=== PATIENT | male | born 1990 | race Caucasian/White ===

== ENCOUNTER 2018-03-27 19:58 | Emergency (ER) | payer SELFPAY ==
[2018-03-27] MEDS ORDERED: ALBUTEROL 2.5 MG/3 ML NEB SOL ONE (20:30)
[2018-03-27] MEDS ORDERED: METHYLPREDNISOLONE 125 MG INJ ONE (20:30)
--- NOTE | 2018-03-27 21:13 | EDPHYS ---
Physician Documentation [facility] Name: Donell Rodriguez Age: 27 yrs Sex: Male : 1990 Arrival Date: 03/27/2018 Time: 19:59 Bed 16 Private MD: ED Physician Souleymane Gonzalez HPI: 03/27 20:27 This 27 yrs old Male presents to ER via Ambulatory with complaints of Asthma jr8 Exacerbation. 20:27 The patient presents to the emergency department with wheezing, Current therapy: jr8 albuterol inhaler, that began at rest. Onset: The symptoms/episode began/occurred acutely, today, and became worse and became persistent. Modifying factors: The symptoms are alleviated by nothing, the symptoms are aggravated by exertion, talking. Associated signs and symptoms: The patient has no apparent associated signs or symptoms. Severity of symptoms: At their worst the symptoms were moderate in the emergency department the symptoms are unchanged. The patient has experienced similar episodes in the past, a few times. The patient has not recently seen a physician. out of inhaler . Historical: - Allergies: 20:10 No Known Allergies; tl2 - Home Meds: 20:10 albuterol sulfate 90 mcg/actuation Inhl HFAA 2 puffs every 4 hours [Active]; tl2 - PMHx: 20:10 Anxiety; Asthma; tl2 - Immunization history:: Adult Immunizations up to date. - Social history:: Smoking status: Patient/guardian denies using tobacco. - Ebola Screening: : No symptoms or risks identified at this time. ROS: 20:27 Eyes: Negative for injury, pain, redness, and discharge, ENT: Negative for injury, jr8 pain, and discharge, Neck: Negative for injury, pain, and swelling, Cardiovascular: Negative for chest pain, palpitations, and edema, Abdomen/GI: Negative for abdominal pain, nausea, vomiting, diarrhea, and constipation, Back: Negative for injury and pain, MS/Extremity: Negative for injury and deformity, Skin: Negative for injury, rash, and discoloration, Neuro: Negative for headache, weakness, numbness, tingling, and seizure. 20:27 Respiratory: Positive for cough, dyspnea on exertion, shortness of breath, wheezing, expiratory. Exam: 20:27 Eyes: Pupils equal round and reactive to light, extra-ocular motions intact. Lids and jr8 lashes normal. Conjunctiva and sclera are non-icteric and not injected. Cornea within normal limits. Periorbital areas with no swelling, redness, or edema. ENT: Nares patent. No nasal discharge, no septal abnormalities noted. Tympanic membranes are normal and external auditory canals are clear. Oropharynx with no redness, swelling, or masses, exudates, or evidence of obstruction, uvula midline. Mucous membranes moist. Neck: Trachea midline, no thyromegaly or masses palpated, and no cervical lymphadenopathy. Supple, full range of motion without nuchal rigidity, or vertebral point tenderness. No Meningismus. Cardiovascular: Regular rate and rhythm with a normal S1 and S2. No gallops, murmurs, or rubs. Normal PMI, no JVD. No pulse deficits. Abdomen/GI: Soft, non-tender, with normal bowel sounds. No distension or tympany. No guarding or rebound. No evidence of tenderness throughout. Back: No spinal tenderness. No costovertebral tenderness. Full range of motion. Skin: Warm, dry with normal turgor. Normal color with no rashes, no lesions, and no evidence of cellulitis. MS/ Extremity: Pulses equal, no cyanosis. Neurovascular intact. Full, normal range of motion. Neuro: Awake and alert, GCS 15, oriented to person, place, time, and situation. Cranial nerves II-XII grossly intact. Motor strength 5/5 in all extremities. Sensory grossly intact. Cerebellar exam normal. Normal gait. 20:27 Respiratory: the patient does not display signs of respiratory distress, Respirations: normal, symetrical, no use of accessory muscles, no grunting, no evidence of nasal flaring, no appreciated paradoxical movements, no prolonged exhalations, no pursed lip breathing, no retractions, no shallow respirations, no splinting, no tachypnea, Breath sounds: wheezing: expiratory that is moderate, is heard diffusely. Vital Signs: 20:10 BP 139 / 83; Pulse 82; Resp 20; Temp 98.1(O); Pulse Ox 97% on R/A; Weight 65.77 kg; tl2 Height 5 ft. 5 in. (165.10 cm); Pain 2/10; 20:57 BP 123 / 95; Pulse 97; Resp 18; Pulse Ox 98% on R/A; mt 20:10 Body Mass Index 24.13 (65.77 kg, 165.10 cm) tl2 MDM: 20:15 Patient medically screened. jr8 21:12 Data reviewed: vital signs, nurses notes, and as a result, I will discharge patient. jr8 Data interpreted: Pulse oximetry: on room air is 96 %. Interpretation: normal. Counseling: I had a detailed discussion with the patient and/or guardian regarding: the historical points, exam findings, and any diagnostic results supporting the discharge/admit diagnosis, the need for outpatient follow up, a family practitioner, to return to the emergency department if symptoms worsen or persist or if there are any questions or concerns that arise at home. Response to treatment: the patient's symptoms have markedly improved after treatment. 03/27 20:23 Order name: IV; Complete Time: 20:33 jr8 Administered Medications: 20:35 Drug: SOLU-Medrol 125 mg Route: IVP; Site: left antecubital; aj1 21:43 Follow up: Response: No adverse reaction aj1 20:36 Drug: Albuterol 2.5 mg Route: Inhalation; aj1 20:55 Drug: Albuterol 2.5 mg Route: Inhalation; aj1 21:16 Drug: Albuterol 2.5 mg Route: Inhalation; aj1 21:43 Follow up: Response: No adverse reaction aj1 Disposition: 23:40 Co-signature as Attending Physician, Souleymane Gonzalez MD. rn Disposition: 03/27/18 21:12 Discharged to Home. Impression: Mild intermittent asthma with (acute) exacerbation. - Condition is Stable. - Discharge Instructions: Asthma, Adult. - Prescriptions for Prednisone 20 mg Oral Tablet - take 1 tablet by ORAL route once daily for 5 days; 5 tablet. Albuterol Sulfate 90 mcg/actuation - inhale 1-2 puff by INHALATION route every 4-6 hours; 1 Inhaler. - Medication Reconciliation Form, Thank You Letter, Antibiotic Education, Prescription Opioid Use form. - Follow up: Private Physician; When: 5 - 6 days; Reason: Recheck today's complaints, Continuance of care, Re-evaluation by your physician. - Problem is new. - Symptoms have improved. Signatures: Roselyn Rivas RN RN aj1 Souleymane Gonzalez MD MD rn Roszak, Josh, PA PA jr8 Juliet Paul RN RN tl2 Corrections: (The following items were deleted from the chart) 21:44 21:12 03/27/2018 21:12 Discharged to Home. Impression: Mild intermittent asthma with aj1 (acute) exacerbation. Condition is Stable. Forms are Medication Reconciliation Form, Thank You Letter, Antibiotic Education, Prescription Opioid Use. Follow up: Private Physician; When: 5 - 6 days; Reason: Recheck today's complaints, Continuance of care, Re-evaluation by your physician. Problem is new. Symptoms have improved. jr8
--- NOTE | 2018-03-27 21:13 | ER ---
Nurse's Notes [facility] Name: Donell Rodriguez Age: 27 yrs Sex: Male : 1990 Arrival Date: 03/27/2018 Time: 19:59 Bed 16 Private MD: Diagnosis: Mild intermittent asthma with (acute) exacerbation Presentation: 03/27 20:09 Presenting complaint: Patient states: I've been having an asthma attack since this tl2 morning. Does not have an inhaler. Reports congestion and wheezing. Transition of care: patient was not received from another setting of care. Onset of symptoms was March 27, 2018. Risk Assessment: Do you want to hurt yourself or someone else? Patient reports no desire to harm self or others. Initial Sepsis Screen: Does the patient meet any 2 criteria? No. Patient's initial sepsis screen is negative. Does the patient have a suspected source of infection? No. Patient's initial sepsis screen is negative. Care prior to arrival: None. 20:09 Method Of Arrival: Ambulatory tl2 20:09 Acuity: RICHARD 3 tl2 Triage Assessment: 20:10 General: Appears in no apparent distress. uncomfortable, Behavior is calm, cooperative, tl2 appropriate for age. Pain: Denies pain. Respiratory: Airway is patent Respiratory effort is even, unlabored, Respiratory pattern is regular, symmetrical, Breath sounds with wheezes bilaterally. the patient has mild shortness of breath. Historical: - Allergies: 20:10 No Known Allergies; tl2 - Home Meds: 20:10 albuterol sulfate 90 mcg/actuation Inhl HFAA 2 puffs every 4 hours [Active]; tl2 - PMHx: 20:10 Anxiety; Asthma; tl2 - Immunization history:: Adult Immunizations up to date. - Social history:: Smoking status: Patient/guardian denies using tobacco. - Ebola Screening: : No symptoms or risks identified at this time. Screenin:36 Abuse screen: Denies threats or abuse. Denies injuries from another. Nutritional aj1 screening: No deficits noted. Tuberculosis screening: No symptoms or risk factors identified. 21:43 Fall Risk None identified. aj1 Assessment: 20:36 General: Appears in no apparent distress. uncomfortable, Behavior is calm, cooperative, aj1 agitated. Pain: Denies pain. Neuro: Level of Consciousness is awake, alert, obeys commands, Oriented to person, place, time, situation, Speech is normal, Facial symmetry appears normal. Cardiovascular: Heart tones S1 S2 present Patient's skin is warm and dry. Respiratory: Reports shortness of breath at rest cough that is persistent Airway is patent Respiratory effort is even, labored, Respiratory pattern is tachypnea Breath sounds with wheezes bilaterally. GI: No signs and/or symptoms were reported involving the gastrointestinal system. : No signs and/or symptoms were reported regarding the genitourinary system. EENT: No signs and/or symptoms were reported regarding the EENT system. Derm: No signs and/or symptoms reported regarding the dermatologic system. Skin is pink, warm \T\ dry. normal. Musculoskeletal: No signs and/or symptoms reported regarding the musculoskeletal system. Circulation, motion, and sensation intact. 21:42 Reassessment: Patient appears in no apparent distress at this time. No changes from aj1 previously documented assessment. Patient and/or family updated on plan of care and expected duration. Pain level reassessed. Patient is alert, oriented x 3, equal unlabored respirations, skin warm/dry/pink. Vital Signs: 20:10 BP 139 / 83; Pulse 82; Resp 20; Temp 98.1(O); Pulse Ox 97% on R/A; Weight 65.77 kg; tl2 Height 5 ft. 5 in. (165.10 cm); Pain 2/10; 20:57 BP 123 / 95; Pulse 97; Resp 18; Pulse Ox 98% on R/A; mt 20:10 Body Mass Index 24.13 (65.77 kg, 165.10 cm) tl2 ED Course: 19:59 Patient arrived in ED. am2 20:10 Triage completed. tl2 20:10 Arm band placed on right wrist. tl2 20:13 Roselyn Rivas, KAREN is Primary Nurse. aj1 20:15 Leonard Barboza PA is PHCP. jr8 20:15 Souleymane Gonzalez MD is Attending Physician. jr8 20:33 Inserted saline lock: 20 gauge in left antecubital area, using aseptic technique. Blood mt collected. 20:36 Patient has correct armband on for positive identification. Bed in low position. Call aj1 light in reach. Side rails up X 1. 20:36 No provider procedures requiring assistance completed. aj1 21:42 IV discontinued, intact, bleeding controlled, No redness/swelling at site. Pressure aj1 dressing applied. Administered Medications: 20:35 Drug: SOLU-Medrol 125 mg Route: IVP; Site: left antecubital; aj1 21:43 Follow up: Response: No adverse reaction aj1 20:36 Drug: Albuterol 2.5 mg Route: Inhalation; aj1 20:55 Drug: Albuterol 2.5 mg Route: Inhalation; aj1 21:16 Drug: Albuterol 2.5 mg Route: Inhalation; aj1 21:43 Follow up: Response: No adverse reaction aj1 Outcome: 21:12 Discharge ordered by . jr8 21:44 Discharged to home ambulatory. aj1 21:44 Condition: good 21:44 Discharge instructions given to patient, Instructed on discharge instructions, follow up and referral plans. medication usage, Demonstrated understanding of instructions, follow-up care, medications, Prescriptions given X 1. 21:44 Patient left the ED. aj1 Signatures: Roselyn Rivas RN RN aj1 Leonard Barboza PA PA jr8 Juliet Paul RN RN tl2 Emely Loo [facility]
[2018-03-27 22:14] VITALS: TEMP 98.1
[2018-03-27 22:15] VITALS: BP 123/95; O2SAT 98
== END 2018-03-27 21:44 | disposition home or self-care (01) ==
LOC: ER 19:58
DX: J45.21 Mild intermittent asthma with (acute) exacerbation (principal)
CPT/HCPCS: 96374; 99284; J2930

== ENCOUNTER 2018-07-28 14:37 | Emergency (ER) | payer SELFPAY ==
[2018-07-28] MEDS ORDERED: METHYLPREDNISOLONE 125 MG INJ ONE (15:35)
[2018-07-28] MEDS ORDERED: IPRATROPIUM BROM 0.5MG/2.5ML ONE (15:35)
[2018-07-28] MEDS ORDERED: ALBUTEROL 2.5 MG/3 ML NEB SOL ONE (15:35)
[2018-07-28] MEDS ORDERED: Magnesium Sulfate 2gm IVPB 2 G/50 ML BAG IV ONE (15:35)
--- NOTE | 2018-07-28 16:42 | ER ---
Nurse's Notes [facility] Name: Donell Rodriguez Age: 28 yrs Sex: Male : 1990 Arrival Date: 07/28/2018 Time: 14:39 Bed 17 Private MD: Diagnosis: Asthma Presentation: 07/28 15:12 Presenting complaint: Patient states: Having shortness of breath, has hx of asthma but sg it hasnt been this bad in a long time, pt reports not having any medication at home because he hasnt needed it, audible wheezes noted. Transition of care: patient was not received from another setting of care. Onset of symptoms was July 28, 2018. Risk Assessment: Do you want to hurt yourself or someone else? Patient reports no desire to harm self or others. Initial Sepsis Screen:. Care prior to arrival: None. 15:12 Method Of Arrival: Ambulatory sg 15:12 Acuity: RICHARD 3 sg 15:56 Initial Sepsis Screen: Does the patient meet any 2 criteria? No. Patient's initial em sepsis screen is negative. Does the patient have a suspected source of infection? No. Patient's initial sepsis screen is negative. Historical: - Allergies: 15:13 No Known Allergies; sg - PMHx: 15:13 Anxiety; Asthma; sg - Immunization history:: Adult Immunizations not up to date. - Ebola Screening: : Patient negative for fever greater than or equal to 101.5 degrees Fahrenheit, and additional compatible Ebola Virus Disease symptoms Patient denies exposure to infectious person Patient denies travel to an Ebola-affected area in the 21 days before illness onset No symptoms or risks identified at this time. - Social history:: Smoking status: Patient/guardian denies using tobacco. Screenin:48 Abuse screen: Denies threats or abuse. Nutritional screening: No deficits noted. em Tuberculosis screening: No symptoms or risk factors identified. Fall Risk None identified. Assessment: 15:30 General: Appears in no apparent distress. comfortable, Behavior is calm, cooperative. em Pain: Denies pain. Neuro: Level of Consciousness is awake, alert, obeys commands, Oriented to person, place, time, situation. Cardiovascular: Denies chest pain, Capillary refill < 3 seconds Patient's skin is warm and dry. Respiratory: Reports cough that is productive, Airway is patent Respiratory effort is even, unlabored, Respiratory pattern is regular, symmetrical, Sputum is clear Breath sounds with wheezes bilaterally. Onset: The symptoms/episode began/occurred yesterday, the patient has mild shortness of breath. GI: Abdomen is flat. : No signs and/or symptoms were reported regarding the genitourinary system. Derm: Skin is intact, Skin is pink, warm \T\ dry. Musculoskeletal: Range of motion: intact in all extremities. Vital Signs: 15:13 BP 129 / 93; Pulse 96; Resp 18; Temp 97.7; Pulse Ox 94% on R/A; Pain 0/10; sg 16:34 BP 148 / 90; Pulse 85; Resp 16; Pulse Ox 100% on R/A; Pain 0/10; em ED Course: 14:39 Patient arrived in ED. mr 15:12 Familia Ray LVN is Primary Nurse. em 15:13 Triage completed. sg 15:16 Kassi Rodriguez FNP-C is [facility]. kb 15:16 Gadiel Ahuja MD is Attending Physician. kb 15:48 Patient has correct armband on for positive identification. Bed in low position. Call em light in reach. Side rails up X2. 15:48 No provider procedures requiring assistance completed. Inserted saline lock: 20 gauge em in right antecubital area, using aseptic technique. 15:56 Arm band placed on. em 16:54 IV discontinued, intact, bleeding controlled, No redness/swelling at site. Pressure em dressing applied. Administered Medications: 15:46 Drug: Magnesium Sulfate 2 grams Route: IVPB; Infused Over: 2 hrs; Site: right em antecubital; 16:54 Follow up: Response: No adverse reaction; IV Status: Completed infusion; IV Intake: 50mlem 15:46 Drug: SOLU-Medrol 125 mg Route: IVP; Site: right antecubital; iw 16:33 Follow up: Response: No adverse reaction em 15:46 Drug: DuoNeb (3:1) (2.5 mg - 0.5 mg) 3 ml Route: Nebulizer; em 16:34 Follow up: Response: No adverse reaction em Intake: 16:54 IV: 50ml; Total: 50ml. em Outcome: 16:41 Discharge ordered by . kb 16:54 Discharged to home ambulatory. em 16:54 Condition: good 16:54 Discharge instructions given to patient, Instructed on discharge instructions, follow up and referral plans. medication usage, Demonstrated understanding of instructions, follow-up care, medications, Prescriptions given X 2. 16:55 Patient left the ED. em Signatures: Kassi Rodriguez, MULTIMEDIA INSTRUCTIONAL DESIGNER-C MULTIMEDIA INSTRUCTIONAL DESIGNER-Lakhwinder Boyd, RN RN Reginald Syeda mr RayFamilia, BIOMEDICAL SCIENTIST BIOMEDICAL SCIENTIST Rachell Sampson RN RN iw
--- NOTE | 2018-07-28 16:42 | EDPHYS ---
Physician Documentation [facility] Name: Donell Rodriguez Age: 28 yrs Sex: Male : 1990 Arrival Date: 07/28/2018 Time: 14:39 Bed 17 Private MD: ED Physician Gadiel Ahuja HPI: 07/28 15:43 This 28 yrs old Male presents to ER via Ambulatory with complaints of Asthma kb Exacerbation. 15:43 The patient presents to the emergency department with wheezing, Current therapy: None, kb that began allergies or cold, the patient was reported to have audible wheezing, trouble breathing. Onset: The symptoms/episode began/occurred last night. Modifying factors: The symptoms are alleviated by nothing, the symptoms are aggravated by nothing. Associated signs and symptoms: The patient has no apparent associated signs or symptoms. Severity of symptoms: At their worst the symptoms were moderate in the emergency department the symptoms are unchanged. The patient has experienced similar episodes in the past, chronically. The patient has not recently seen a physician. Pt reports he has had a cough for about a week, last night started having wheezing and shortness of breath. Historical: - Allergies: 15:13 No Known Allergies; sg - PMHx: 15:13 Anxiety; Asthma; sg - Immunization history:: Adult Immunizations not up to date. - Ebola Screening: : Patient negative for fever greater than or equal to 101.5 degrees Fahrenheit, and additional compatible Ebola Virus Disease symptoms Patient denies exposure to infectious person Patient denies travel to an Ebola-affected area in the 21 days before illness onset No symptoms or risks identified at this time. - Social history:: Smoking status: Patient/guardian denies using tobacco. ROS: 15:41 Constitutional: Negative for fever, chills, and weight loss, Cardiovascular: Negative kb for chest pain, palpitations, and edema, Abdomen/GI: Negative for abdominal pain, nausea, vomiting, diarrhea, and constipation, MS/Extremity: Negative for injury and deformity, Skin: Negative for injury, rash, and discoloration, Neuro: Negative for headache, weakness, numbness, tingling, and seizure. 15:41 Respiratory: Positive for cough, shortness of breath, wheezing, Negative for dyspnea on exertion, hemoptysis, orthopnea, pleurisy. Exam: 15:43 Constitutional: This is a well developed, well nourished patient who is awake, alert, kb and in no acute distress. Head/Face: Normocephalic, atraumatic. Chest/axilla: Normal chest wall appearance and motion. Nontender with no deformity. No lesions are appreciated. Cardiovascular: Regular rate and rhythm with a normal S1 and S2. No gallops, murmurs, or rubs. Normal PMI, no JVD. No pulse deficits. Abdomen/GI: Soft, non-tender, with normal bowel sounds. No distension or tympany. No guarding or rebound. No evidence of tenderness throughout. Back: No spinal tenderness. No costovertebral tenderness. Full range of motion. Skin: Warm, dry with normal turgor. Normal color with no rashes, no lesions, and no evidence of cellulitis. MS/ Extremity: Pulses equal, no cyanosis. Neurovascular intact. Full, normal range of motion. Neuro: Awake and alert, GCS 15, oriented to person, place, time, and situation. Cranial nerves II-XII grossly intact. Motor strength 5/5 in all extremities. Sensory grossly intact. Cerebellar exam normal. Normal gait. 15:43 Respiratory: mild respiratory distress is noted, Respirations: labored breathing, that is mild, that is moderate, Breath sounds: wheezing: inspiratory expiratory that is severe, is heard diffusely. Vital Signs: 15:13 BP 129 / 93; Pulse 96; Resp 18; Temp 97.7; Pulse Ox 94% on R/A; Pain 0/10; sg 16:34 BP 148 / 90; Pulse 85; Resp 16; Pulse Ox 100% on R/A; Pain 0/10; em MDM: 15:17 Patient medically screened. kb 15:42 Data reviewed: vital signs, nurses notes. Data interpreted: Pulse oximetry: on room air kb is 94 %. Interpretation: acceptable. 16:37 Response to treatment: the patient's symptoms have markedly improved after treatment. kb 16:41 Counseling: I had a detailed discussion with the patient and/or guardian regarding: the kb historical points, exam findings, and any diagnostic results supporting the discharge/admit diagnosis, the need for outpatient follow up, a family practitioner, to return to the emergency department if symptoms worsen or persist or if there are any questions or concerns that arise at home. 07/28 15:21 Order name: IV Start; Complete Time: 15:46 kb Administered Medications: 15:46 Drug: Magnesium Sulfate 2 grams Route: IVPB; Infused Over: 2 hrs; Site: right em antecubital; 16:54 Follow up: Response: No adverse reaction; IV Status: Completed infusion; IV Intake: 50mlem 15:46 Drug: SOLU-Medrol 125 mg Route: IVP; Site: right antecubital; iw 16:33 Follow up: Response: No adverse reaction em 15:46 Drug: DuoNeb (3:1) (2.5 mg - 0.5 mg) 3 ml Route: Nebulizer; em 16:34 Follow up: Response: No adverse reaction em Disposition: 18:36 Co-signature as Attending Physician, Gadiel Ahuja MD. Disposition: 07/28/18 16:41 Discharged to Home. Impression: Asthma. - Condition is Stable. - Discharge Instructions: Asthma, Adult, [id number]. - Prescriptions for Prednisone 20 mg Oral Tablet - take 1 tablet by ORAL route once daily for 5 days; 5 tablet. Albuterol Sulfate 2.5 mg /3 mL (0.083 %) Inhalation Solution for Nebulization - inhale 1 unit by NEBULIZATION route every 8 hours As needed; 1 box. Albuterol Sulfate 90 mcg/actuation - inhale 1-2 puff by INHALATION route every 4-6 hours; 1 Inhaler. - Medication Reconciliation Form, Thank You Letter, Antibiotic Education, Prescription Opioid Use form. - Follow up: Emergency Department; When: As needed; Reason: Worsening of condition. Follow up: Private Physician; When: 2 - 3 days; Reason: Recheck today's complaints, Continuance of care, Re-evaluation by your physician. Signatures: Kassi Rodriguez, CONSULTING GROUP ANALYST-C CONSULTING GROUP ANALYST-Ckb Lakhwinder Redman, KAREN RN sg Familia Ray, KELP OR SEAGRASS GATHERER KELP OR SEAGRASS GATHERER em Rachell Finn RN RN Gadiel Ahuja MD MD Corrections: (The following items were deleted from the chart) 16:55 16:41 07/28/2018 16:41 Discharged to Home. Impression: Asthma. Condition is Stable. em Forms are Medication Reconciliation Form, Thank You Letter, Antibiotic Education, Prescription Opioid Use. Follow up: Emergency Department; When: As needed; Reason: Worsening of condition. Follow up: Private Physician; When: 2 - 3 days; Reason: Recheck today's complaints, Continuance of care, Re-evaluation by your physician. kb
[2018-07-28 17:01] VITALS: TEMP 97.7
[2018-07-28 17:03] VITALS: BP 148/90; O2SAT 100
== END 2018-07-28 16:55 | disposition home or self-care (01) ==
LOC: ER 14:37
DX: J45.909 Unspecified asthma, uncomplicated (principal)
CPT/HCPCS: 94640; 96365; 96375; 99284; J2930; J3475

== ENCOUNTER 2019-01-25 22:54 | Emergency (ER) | payer SELFPAY ==
[2019-01-25] MEDS ORDERED: IPRATROPIUM BROM 0.5MG/2.5ML ONE (23:18)
[2019-01-25] MEDS ORDERED: ALBUTEROL 2.5 MG/3 ML NEB SOL ONE (23:18)
[2019-01-25] MEDS ORDERED: METHYLPREDNISOLONE 125 MG INJ ONE (23:21)
--- NOTE | 2019-01-26 00:17 | ER ---
Nurse's Notes [facility] Name: Donell Rodriguez Age: 28 yrs Sex: Male : 1990 Arrival Date: 01/25/2019 Time: 22:56 Bed 6 Private MD: Diagnosis: Acute exacerbation asthma Presentation: 01/25 22:58 Presenting complaint: Patient states: Asthma exacerbation that started today, pt la1 reports having a panic attack about 20 minutes ago. Pt repeats that he is out of his albuterol nebulizer as well. Transition of care: patient was not received from another setting of care. Onset of symptoms was January 25, 2019. Risk Assessment: Do you want to hurt yourself or someone else? Patient reports no desire to harm self or others. Initial Sepsis Screen: Does the patient meet any 2 criteria? No. Patient's initial sepsis screen is negative. Does the patient have a suspected source of infection? No. Patient's initial sepsis screen is negative. Care prior to arrival: None. 22:58 Method Of Arrival: Ambulatory la1 22:58 Acuity: RICHARD 3 la1 Triage Assessment: 23:10 General: see triage assessment. Respiratory: the patient has moderate shortness of tl2 breath. Respiratory: Onset: The symptoms/episode began/occurred just prior to arrival. Historical: - Allergies: 23:00 No Known Allergies; la1 - Home Meds: 23:16 albuterol sulfate 90 mcg/actuation Inhl HFAA 2 puffs every 4 hours [Active]; tl2 - PMHx: 23:00 Anxiety; Asthma; la1 - Immunization history:: Adult Immunizations up to date. - Social history:: Smoking status: Patient/guardian denies using tobacco. - Ebola Screening: : No symptoms or risks identified at this time. Screenin:09 Abuse screen: Denies threats or abuse. Nutritional screening: No deficits noted. tl2 Tuberculosis screening: No symptoms or risk factors identified. Fall Risk None identified. Assessment: 23:09 General: Appears in no apparent distress. uncomfortable, Behavior is cooperative, tl2 appropriate for age, anxious. Pain: Denies pain. Neuro: Level of Consciousness is awake, alert, obeys commands, Oriented to person, place, time, situation. Cardiovascular: Rhythm is sinus rhythm. Respiratory: Airway is patent Respiratory effort is even, labored, Respiratory pattern is regular, symmetrical, Breath sounds with wheezes bilaterally. Respiratory: Reports shortness of breath labored breathing. GI: No signs and/or symptoms were reported involving the gastrointestinal system. : No signs and/or symptoms were reported regarding the genitourinary system. Derm: Skin is pink, warm \T\ dry. 23:37 Reassessment: Patient appears in no apparent distress at this time. Patient and/or tl2 family updated on plan of care and expected duration. Pain level reassessed. Patient is alert, oriented x 3, equal unlabored respirations, skin warm/dry/pink. Patient states feeling better. Patient states symptoms have improved. 01/26 00:27 Reassessment: Patient appears in no apparent distress at this time. Patient and/or tl2 family updated on plan of care and expected duration. Pain level reassessed. Patient is alert, oriented x 3, equal unlabored respirations, skin warm/dry/pink. pt verbalized understanding of discharge instructions, need for follow up, prescription usage and list of Family doctors in the area Patient states feeling better. Vital Signs: 01/25 23:00 BP 137 / 98; Pulse 89; Resp 24; Temp 98.0(O); Pulse Ox 100% on R/A; Weight 63.5 kg; la1 Height 5 ft. 5 in. (165.10 cm); Pain 0/10; 23:37 BP 126 / 73; Pulse 88; Resp 12; Pulse Ox 100% on Nebulizer Mask; tl2 01/26 00:27 BP 132 / 82; Pulse 89; Resp 18; Pulse Ox 97% on R/A; tl2 01/25 23:00 Body Mass Index 23.30 (63.50 kg, 165.10 cm) la1 ED Course: 01/25 22:56 Patient arrived in ED. am2 22:59 Triage completed. la1 23:00 Arm band placed on right wrist. la1 23:04 Joni See MD is Attending Physician. pkl 23:06 Rhiannon Corey, KAREN is Primary Nurse. ea 23:09 Patient has correct armband on for positive identification. Placed in gown. Bed in low tl2 position. Call light in reach. Side rails up X 1. 01/26 00:27 No provider procedures requiring assistance completed. Patient did not have IV access tl2 during this emergency room visit. Administered Medications: 01/25 23:10 Drug: Albuterol - atroVENT (3:1) (2.5 mg - 0.5 mg) 3 ml Route: Nebulizer; tl2 23:39 Follow up: Response: No adverse reaction; Wheezing diminished ea 23:14 Drug: SOLU-Medrol 125 mg Route: IM; Site: right deltoid; tl2 23:39 Follow up: Response: No adverse reaction ea Outcome: 01/26 00:16 Discharge ordered by . felicitas 00:27 Discharged to home ambulatory. tl2 00:27 Condition: stable 00:27 Discharge instructions given to patient, Instructed on discharge instructions, follow up and referral plans. medication usage, Demonstrated understanding of instructions, follow-up care, medications, Prescriptions given X 2. 00:29 Patient left the ED. tl2 Signatures: Joni See MD MD pkl Attema, Lee RN RN kaia1 Juliet Paul RN RN tl2 Emely Loo Elena, RN RN ea
--- NOTE | 2019-01-26 00:17 | EDPHYS ---
Physician Documentation [facility] Name: Donell Rodriguez Age: 28 yrs Sex: Male : 1990 Arrival Date: 01/25/2019 Time: 22:56 Bed 6 Private MD: ED Physician Joni See HPI: 01/25 23:12 This 28 yrs old Male presents to ER via Ambulatory with complaints of Asthma pkl Exacerbation, Breathing Difficulty. 23:12 Onset: The symptoms/episode began/occurred today. Associated signs and symptoms: pkl Pertinent positives: panic attack. Historical: - Allergies: 23:00 No Known Allergies; la1 - Home Meds: 23:16 albuterol sulfate 90 mcg/actuation Inhl HFAA 2 puffs every 4 hours [Active]; tl2 - PMHx: 23:00 Anxiety; Asthma; la1 - Immunization history:: Adult Immunizations up to date. - Social history:: Smoking status: Patient/guardian denies using tobacco. - Ebola Screening: : No symptoms or risks identified at this time. ROS: 23:12 Eyes: Negative for injury, pain, redness, and discharge, ENT: Negative for injury, pkl pain, and discharge, Neck: Negative for injury, pain, and swelling, Cardiovascular: Negative for chest pain, palpitations, and edema. 23:12 Respiratory: Positive for shortness of breath, wheezing. 23:12 Abdomen/GI: Negative for abdominal pain, nausea, vomiting, and diarrhea. 23:12 Back: Negative for acute changes. 23:12 : Negative for urinary symptoms. 23:12 MS/extremity: Negative for acute changes. 23:12 Skin: Negative for rash. 23:12 Neuro: Negative for altered mental status. Exam: 23:12 Head/Face: Normocephalic, atraumatic. Eyes: Pupils equal round and reactive to light, pkl extra-ocular motions intact. Lids and lashes normal. Conjunctiva and sclera are non-icteric and not injected. Cornea within normal limits. Periorbital areas with no swelling, redness, or edema. ENT: Nares patent. No nasal discharge, no septal abnormalities noted. Tympanic membranes are normal and external auditory canals are clear. Oropharynx with no redness, swelling, or masses, exudates, or evidence of obstruction, uvula midline. Mucous membranes moist. Neck: Trachea midline, no thyromegaly or masses palpated, and no cervical lymphadenopathy. Supple, full range of motion without nuchal rigidity, or vertebral point tenderness. No Meningismus. Chest/axilla: Normal chest wall appearance and motion. Nontender with no deformity. No lesions are appreciated. Cardiovascular: Regular rate and rhythm with a normal S1 and S2. No gallops, murmurs, or rubs. Normal PMI, no JVD. No pulse deficits. 23:12 Respiratory: mild respiratory distress is noted, Respirations: labored breathing, Breath sounds: bronchial sounds, that are moderate, are scattered. 23:12 Abdomen/GI: Bowel sounds: normal, Palpation: abdomen is soft and non-tender, in all quadrants. 23:12 Back: Exam negative for acute changes. 23:12 : Exam negative for acute changes. 23:12 Musculoskeletal/extremity: Exam is negative for acute changes. 23:12 Skin: Exam negative for rash. 23:12 Neuro: Orientation: is normal, Mentation: is normal, Cranial nerves: grossly normal, Motor: is normal. 23:12 Psych: Behavior/mood is anxious, Patient has no thoughts/intents to harm self or others. Vital Signs: 23:00 BP 137 / 98; Pulse 89; Resp 24; Temp 98.0(O); Pulse Ox 100% on R/A; Weight 63.5 kg; la1 Height 5 ft. 5 in. (165.10 cm); Pain 0/10; 23:37 BP 126 / 73; Pulse 88; Resp 12; Pulse Ox 100% on Nebulizer Mask; tl2 01/26 00:27 BP 132 / 82; Pulse 89; Resp 18; Pulse Ox 97% on R/A; tl2 01/25 23:00 Body Mass Index 23.30 (63.50 kg, 165.10 cm) la1 MDM: 01/25 23:04 Patient medically screened. pkl 01/26 00:15 Data reviewed: vital signs, nurses notes. pkl Administered Medications: 01/25 23:10 Drug: Albuterol - atroVENT (3:1) (2.5 mg - 0.5 mg) 3 ml Route: Nebulizer; tl2 23:39 Follow up: Response: No adverse reaction; Wheezing diminished ea 23:14 Drug: SOLU-Medrol 125 mg Route: IM; Site: right deltoid; tl2 23:39 Follow up: Response: No adverse reaction ea Disposition: 01/26/19 00:16 Discharged to Home. Impression: Acute exacerbation asthma. - Condition is Stable. - Prescriptions for Albuterol Sulfate 90 mcg/actuation - inhale 1-2 puff by INHALATION route every 4-6 hours; 1 Inhaler. Albuterol Sulfate 2.5 mg /3 mL (0.083 %) Inhalation Solution for Nebulization - inhale 1 unit by NEBULIZATION route every 8 hours As needed; 1 box. - Medication Reconciliation Form, Thank You Letter, Antibiotic Education, Prescription Opioid Use form. - Follow up: Private Physician; When: 2 - 3 days; Reason: Re-evaluation by your physician. - Problem is new. - Symptoms have improved. Signatures: Joni See MD MD pkl Edilberto Albarran RN RN la1 Juliet Paul RN RN tl2 Rhiannon Corey RN, ea Corrections: (The following items were deleted from the chart) 01/26 00:29 00:16 01/26/2019 00:16 Discharged to Home. Impression: Acute exacerbation asthma. tl2 Condition is Stable. Forms are Medication Reconciliation Form, Thank You Letter, Antibiotic Education, Prescription Opioid Use. Follow up: Private Physician; When: 2 - 3 days; Reason: Re-evaluation by your physician. Problem is new. Symptoms have improved. pkl
[2019-01-26 01:44] VITALS: TEMP 98
[2019-01-26 02:39] VITALS: BP 132/82; O2SAT 97
== END 2019-01-26 00:29 | disposition home or self-care (01) ==
LOC: ER 22:54
DX: J45.901 Unspecified asthma with (acute) exacerbation (principal); F41.9 Anxiety disorder, unspecified
CPT/HCPCS: 94640; 96372; 99284; J2930

== ENCOUNTER 2019-05-24 09:00 | Emergency (ER) | payer SELFPAY ==
--- NOTE | 2019-05-24 09:42 | ER ---
Nurse's Notes [facility] Name: Donell Rodriguez Age: 29 yrs Sex: Male : 1990 Arrival Date: 05/24/2019 Time: 09:02 Bed 19 Private MD: Diagnosis: Asthma;Acute upper respiratory infection, unspecified Presentation: 05/24 09:10 Presenting complaint: Patient states: difficulty breathing since last night, chest aa5 congestion, and chest pain. Pt denies cough. Pt states "I have asthma and I ran out of my inhaler". 09:10 Transition of care: patient was not received from another setting of care. Onset of aa5 symptoms was April 2019. Risk Assessment: Do you want to hurt yourself or someone else? Patient reports no desire to harm self or others. Initial Sepsis Screen: Does the patient meet any 2 criteria? No. Patient's initial sepsis screen is negative. Does the patient have a suspected source of infection? No. Patient's initial sepsis screen is negative. Care prior to arrival: None. 09:10 Acuity: RICHARD 3 aa5 09:10 Method Of Arrival: Ambulatory aa5 Historical: - Allergies: 09:10 No Known Allergies; aa5 - Home Meds: 09:10 albuterol sulfate 90 mcg/actuation Inhl HFAA 2 puffs every 4 hours [Active]; aa5 - PMHx: 09:10 Anxiety; Asthma; aa5 - PSHx: 09:10 None; aa5 - Immunization history:: Flu vaccine is not up to date. - Social history:: Smoking status: Patient/guardian denies using tobacco. - Ebola Screening: : No symptoms or risks identified at this time. - Family history:: not pertinent. Screenin:16 Abuse screen: Denies threats or abuse. Nutritional screening: No deficits noted. aa5 Tuberculosis screening: No symptoms or risk factors identified. Fall Risk None identified. Assessment: 09:10 General: Appears uncomfortable, Behavior is calm, cooperative. Pain: Complains of pain aa5 in mid-sternal area Pain does not radiate. Pain currently is 3 out of 10 on a pain scale. Quality of pain is described as pressure, Pain began last night Is continuous. Neuro: Level of Consciousness is awake, alert, obeys commands, Oriented to person, place, time, situation. Cardiovascular: Heart tones S1 S2 present Rhythm is regular. Respiratory: Reports shortness of breath Airway is patent Respiratory effort is even, unlabored, Respiratory pattern is regular, symmetrical, Breath sounds with wheezes bilaterally. Denies cough. GI: No signs and/or symptoms were reported involving the gastrointestinal system. : No signs and/or symptoms were reported regarding the genitourinary system. EENT: No signs and/or symptoms were reported regarding the EENT system. Derm: Skin is pink, warm \\T\\ dry. Musculoskeletal: Range of motion: intact in all extremities. 10:07 Reassessment: Patient appears in no apparent distress at this time. Patient and/or em family updated on plan of care and expected duration. Pain level reassessed. Patient is alert, oriented x 3, equal unlabored respirations, skin warm/dry/pink. wheeled to radiology dept. via wheelchair, pending completion of X-ray, pt will be discharged after results Patient states feeling better. Patient states symptoms have improved. Vital Signs: 09:10 BP 125 / 81; Pulse 92; Resp 18 S; Temp 98.1(TE); Pulse Ox 100% on R/A; Weight 58.97 kg aa5 (R); Height 5 ft. 5 in. (165.10 cm) (R); Pain 3/10; 09:10 Body Mass Index 21.63 (58.97 kg, 165.10 cm) aa5 ED Course: 09:02 Patient arrived in ED. as 09:12 Arm band placed on Patient placed in an exam room, on a stretcher. aa5 09:12 Patient has correct armband on for positive identification. Bed in low position. Call aa5 light in reach. Side rails up X 1. 09:13 Triage completed. aa5 09:15 Nain Loaiza MD is Attending Physician. [facility] 09:31 Familia Ray LVN is Primary Nurse. em 10:19 Chest Pa And Lat (2 Views) XRAY In Process Unspecified. EDMS 10:42 No provider procedures requiring assistance completed. Patient did not have IV access em during this emergency room visit. Administered Medications: 09:50 Drug: Zithromax 500 mg Route: PO; em 10:08 Follow up: Response: No adverse reaction em 09:50 Drug: Albuterol - atroVENT (3:1) (2.5 mg - 0.5 mg) 3 ml Route: Nebulizer; em 10:08 Follow up: Response: No adverse reaction; Marked relief of symptoms em 09:50 Drug: predniSONE 60 mg Route: PO; em 10: Follow up: Response: No adverse reaction em Outcome: :41 Discharge ordered by . denisha 10:42 Discharged to home ambulatory. em 10:42 Condition: good 10:42 Discharge instructions given to patient, Instructed on discharge instructions, follow up and referral plans. medication usage, Demonstrated understanding of instructions, follow-up care, medications, Prescriptions given X 4. 10:43 Patient left the ED. em Signatures: Dispatcher [employer] EDNain Alas MD MD cha Munoz, Edgar, TSA SCREENER TSA SCREENER Sydni Mosquera Audri, RN RN aa5 Corrections: (The following items were deleted from the chart) 09:14 09:02 Arm band placed on Patient placed in an exam room, on a stretcher, aa5 aa5 10:14 10:07 Reassessment: Patient appears in no apparent distress at this time. Patient em and/or family updated on plan of care and expected duration. Pain level reassessed. Patient is alert, oriented x 3, equal unlabored respirations, skin warm/dry/pink. wheeled to radiology dept. via wheelchair Patient states feeling better. Patient states symptoms have improved. em
--- NOTE | 2019-05-24 09:43 | EDPHYS ---
Physician Documentation [facility] Name: Donell Rodriguez Age: 29 yrs Sex: Male : 1990 Arrival Date: 05/24/2019 Time: 09:02 Bed 19 Private MD: RODNEY Physician Nain Loaiza HPI: 05/24 09:35 This 29 yrs old Male presents to ER via Ambulatory with complaints of Asthma denisha Exacerbation. 09:35 The patient presents to the emergency department with wheezing, Current therapy: None. denisha Onset: The symptoms/episode began/occurred 2 day(s) ago. Modifying factors: The symptoms are alleviated by inhaler, nebulizer treatment, the symptoms are aggravated by dust, exertion, heat, smoke. Associated signs and symptoms: The patient has no apparent associated signs or symptoms. Severity of symptoms: At their worst the symptoms were moderate in the emergency department the symptoms are unchanged. The patient has experienced similar episodes in the past, multiple times. Historical: - Allergies: 09:10 No Known Allergies; aa5 - Home Meds: 09:10 albuterol sulfate 90 mcg/actuation Inhl HFAA 2 puffs every 4 hours [Active]; aa5 - PMHx: 09:10 Anxiety; Asthma; aa5 - PSHx: 09:10 None; aa5 - Immunization history:: Flu vaccine is not up to date. - Social history:: Smoking status: Patient/guardian denies using tobacco. - Ebola Screening: : No symptoms or risks identified at this time. - Family history:: not pertinent. ROS: 09:35 Constitutional: Negative for fever, chills, and weight loss, Eyes: Negative for injury, denisha pain, redness, and discharge, ENT: Negative for injury, pain, and discharge, Neck: Negative for injury, pain, and swelling, Cardiovascular: Negative for chest pain, palpitations, and edema, Abdomen/GI: Negative for abdominal pain, nausea, vomiting, diarrhea, and constipation, Back: Negative for injury and pain, : Negative for injury, bleeding, discharge, and swelling, MS/Extremity: Negative for injury and deformity, Skin: Negative for injury, rash, and discoloration, Neuro: Negative for headache, weakness, numbness, tingling, and seizure, Psych: Negative for depression, anxiety, suicide ideation, homicidal ideation, and hallucinations, Allergy/Immunology: Negative for hives, rash, and allergies, Endocrine: Negative for neck swelling, polydipsia, polyuria, polyphagia, and marked weight changes, Hematologic/Lymphatic: Negative for swollen nodes, abnormal bleeding, and unusual bruising. 09:35 Respiratory: Positive for cough, shortness of breath, wheezing, inspiratory, expiratory. Exam: 09:35 Constitutional: This is a well developed, well nourished patient who is awake, alert, denisha and in no acute distress. Head/Face: Normocephalic, atraumatic. Eyes: Pupils equal round and reactive to light, extra-ocular motions intact. Lids and lashes normal. Conjunctiva and sclera are non-icteric and not injected. Cornea within normal limits. Periorbital areas with no swelling, redness, or edema. ENT: Nares patent. No nasal discharge, no septal abnormalities noted. Tympanic membranes are normal and external auditory canals are clear. Oropharynx with no redness, swelling, or masses, exudates, or evidence of obstruction, uvula midline. Mucous membranes moist. Neck: Trachea midline, no thyromegaly or masses palpated, and no cervical lymphadenopathy. Supple, full range of motion without nuchal rigidity, or vertebral point tenderness. No Meningismus. Chest/axilla: Normal chest wall appearance and motion. Nontender with no deformity. No lesions are appreciated. Cardiovascular: Regular rate and rhythm with a normal S1 and S2. No gallops, murmurs, or rubs. Normal PMI, no JVD. No pulse deficits. Abdomen/GI: Soft, non-tender, with normal bowel sounds. No distension or tympany. No guarding or rebound. No evidence of tenderness throughout. Back: No spinal tenderness. No costovertebral tenderness. Full range of motion. Male : Normal genitalia with no discharge or lesions. Skin: Warm, dry with normal turgor. Normal color with no rashes, no lesions, and no evidence of cellulitis. MS/ Extremity: Pulses equal, no cyanosis. Neurovascular intact. Full, normal range of motion. Neuro: Awake and alert, GCS 15, oriented to person, place, time, and situation. Cranial nerves II-XII grossly intact. Motor strength 5/5 in all extremities. Sensory grossly intact. Cerebellar exam normal. Normal gait. Psych: Awake, alert, with orientation to person, place and time. Behavior, mood, and affect are within normal limits. 09:35 Respiratory: mild respiratory distress is noted, Respirations: labored breathing, that is mild, Breath sounds: bronchial sounds, rhonchi, wheezing: inspiratory expiratory Respiratory rate: 20 Vital Signs: 09:10 BP 125 / 81; Pulse 92; Resp 18 S; Temp 98.1(TE); Pulse Ox 100% on R/A; Weight 58.97 kg aa5 (R); Height 5 ft. 5 in. (165.10 cm) (R); Pain 3/10; 09:10 Body Mass Index 21.63 (58.97 kg, 165.10 cm) aa5 MDM: 09:15 Patient medically screened. [facility] 09:36 Data reviewed: vital signs, nurses notes, radiologic studies, plain films. [facility] 05/24 09:34 Order name: Chest Pa And Lat (2 Views) XRAY denisha Administered Medications: 09:50 Drug: Zithromax 500 mg Route: PO; em 10:08 Follow up: Response: No adverse reaction em 09:50 Drug: Albuterol - atroVENT (3:1) (2.5 mg - 0.5 mg) 3 ml Route: Nebulizer; em 10:08 Follow up: Response: No adverse reaction; Marked relief of symptoms em 09:50 Drug: predniSONE 60 mg Route: PO; em 10:08 Follow up: Response: No adverse reaction em Disposition: 05/24/19 09:41 Discharged to Home. Impression: Asthma, Acute upper respiratory infection, unspecified. - Condition is Stable. - Discharge Instructions: Asthma, Adult, Upper Respiratory Infection, Adult, Cool Mist Vaporizer, Cough, Adult, [id number], Cough, Adult. - Prescriptions for Albuterol Sulfate 2.5 mg /3 mL (0.083 %) Inhalation Solution for Nebulization - inhale 1 unit by NEBULIZATION route every 8 hours As needed; 1 box. Prednisone 20 mg Oral Tablet - take 2 tablet by ORAL route once daily for 5 days; 10 tablet. Albuterol Sulfate 90 mcg/actuation - inhale 1-2 puff by INHALATION route every 4-6 hours; 1 Inhaler. Zithromax 500 mg Oral Tablet - take 1 tablet by ORAL route once daily for 4 days; 4 tablet. - Medication Reconciliation Form, Thank You Letter, Antibiotic Education, Prescription Opioid Use, Work release form form. - Follow up: Private Physician; When: 2 - 3 days; Reason: Recheck today's complaints, Continuance of care, Re-evaluation by your physician. - Problem is new. - Symptoms have improved. Signatures: Dispatcher [employer] EDNain Alas MD MD cha Munoz, Familia, LIEUTENANT SHIFT SUPERVISOR LIEUTENANT SHIFT SUPERVISOR Michelle Villanueva, RN RN aa5 Corrections: (The following items were deleted from the chart) 10:43 09:41 05/24/2019 09:41 Discharged to Home. Impression: Asthma; Acute upper respiratory em infection, unspecified. Condition is Stable. Discharge Instructions: Asthma, Adult, Upper Respiratory Infection, Adult, Cool Mist Vaporizer, Cough, Adult, [id number], Cough, Adult. Prescriptions for Albuterol Sulfate 2.5 mg /3 mL (0.083 %) Inhalation Solution for Nebulization - inhale 1 unit by NEBULIZATION route every 8 hours As needed; 1 box, Prednisone 20 mg Oral Tablet - take 2 tablet by ORAL route once daily for 5 days; 10 tablet, Albuterol Sulfate 90 mcg/actuation - inhale 1-2 puff by INHALATION route every 4-6 hours; 1 Inhaler, Zithromax 500 mg Oral Tablet - take 1 tablet by ORAL route once daily for 4 days; 4 tablet. and Forms are Medication Reconciliation Form, Thank You Letter, Antibiotic Education, Prescription Opioid Use. Follow up: Private Physician; When: 2 - 3 days; Reason: Recheck today's complaints, Continuance of care, Re-evaluation by your physician. Problem is new. Symptoms have improved. denisha
[2019-05-24] MEDS ORDERED: AZITHROMYCIN 250 MG TAB ONE (09:53)
[2019-05-24] MEDS ORDERED: ALBUTEROL 2.5 MG/3 ML NEB SOL ONE (09:53)
[2019-05-24] MEDS ORDERED: IPRATROPIUM BROM 0.5MG/2.5ML ONE (09:53)
[2019-05-24] MEDS ORDERED: predniSONE 20 MG TAB ONE (09:54)
[2019-05-24 10:48] VITALS: BP 125/81; TEMP 98.1; O2SAT 100
--- NOTE | 2019-05-24 10:53 | RAD REPORT ---
EXAM DESCRIPTION: Vikas Shook (2 Views)05/24/2019 10:15 am CLINICAL HISTORY: Cough COMPARISON: 2017 FINDINGS: The lungs appear clear of acute infiltrate. The heart is normal size IMPRESSION: No acute abnormalities displayed
== END 2019-05-24 10:43 | disposition home or self-care (01) ==
LOC: ER 09:00
DX: J45.909 Unspecified asthma, uncomplicated (principal); J06.9 Acute upper respiratory infection, unspecified
CPT/HCPCS: 71046; 94640; 99284; J7512

== ENCOUNTER 2019-10-29 22:15 | Emergency (ER) | payer SELFPAY ==
[2019-10-29] MEDS ORDERED: ALBUTEROL 2.5 MG/3 ML NEB SOL ONE (22:29)
[2019-10-29] MEDS ORDERED: IPRATROPIUM BROM 0.5MG/2.5ML ONE (22:29)
[2019-10-29] MEDS ORDERED: METHYLPREDNISOLONE 125 MG INJ ONE (22:35)
--- NOTE | 2019-10-29 23:33 | EDPHYS ---
Physician Documentation [facility] Name: Donell Rodriguez Age: 29 yrs Sex: Male : 1990 Arrival Date: 10/29/2019 Time: 22:19 Bed 18 Private MD: ED Physician Joni See HPI: 10/29 23:26 This 29 yrs old Male presents to ER via Ambulatory with complaints of Asthma pkl Exacerbation. 23:26 Onset: The symptoms/episode began/occurred this morning. Associated signs and symptoms: pkl Pertinent positives: cough. Patient said he is out of his inhaler for asthma. Historical: - Allergies: 22:47 No Known Allergies; fc - Home Meds: 22:47 albuterol sulfate 90 mcg/actuation Inhl HFAA 2 puffs every 4 hours [Active]; fc - PMHx: 22:47 Anxiety; Asthma; Allergies; fc - PSHx: 22:47 None; fc - Immunization history:: Last tetanus immunization: up to date. - Social history:: Smoking status: Patient/guardian denies using tobacco, Patient/guardian denies using alcohol, street drugs. - Ebola Screening: : Patient negative for fever greater than or equal to 101.5 degrees Fahrenheit, and additional compatible Ebola Virus Disease symptoms Patient denies exposure to infectious person Patient denies travel to an Ebola-affected area in the 21 days before illness onset. ROS: 23:26 Eyes: Negative for injury, pain, redness, and discharge, ENT: Negative for injury, pkl pain, and discharge, Neck: Negative for injury, pain, and swelling, Cardiovascular: Negative for chest pain, palpitations, and edema. 23:26 Respiratory: Positive for cough, with no reported sputum, wheezing. 23:26 Abdomen/GI: Negative for abdominal pain, nausea, vomiting, and diarrhea. 23:26 Back: Negative for acute changes. 23:26 : Negative for urinary symptoms. 23:26 MS/extremity: Negative for acute changes. 23:26 Skin: Negative for rash. 23:26 Neuro: Negative for altered mental status. Exam: 23:26 Head/Face: Normocephalic, atraumatic. Eyes: Pupils equal round and reactive to light, pkl extra-ocular motions intact. Lids and lashes normal. Conjunctiva and sclera are non-icteric and not injected. Cornea within normal limits. Periorbital areas with no swelling, redness, or edema. ENT: Nares patent. No nasal discharge, no septal abnormalities noted. Tympanic membranes are normal and external auditory canals are clear. Oropharynx with no redness, swelling, or masses, exudates, or evidence of obstruction, uvula midline. Mucous membranes moist. Neck: Trachea midline, no thyromegaly or masses palpated, and no cervical lymphadenopathy. Supple, full range of motion without nuchal rigidity, or vertebral point tenderness. No Meningismus. Chest/axilla: Normal chest wall appearance and motion. Nontender with no deformity. No lesions are appreciated. Cardiovascular: Regular rate and rhythm with a normal S1 and S2. No gallops, murmurs, or rubs. Normal PMI, no JVD. No pulse deficits. 23:26 Respiratory: mild respiratory distress is noted, Respirations: labored breathing, that is mild, Breath sounds: bronchial sounds, that are moderate, are scattered, rhonchi, that are moderate, are scattered. 23:26 Abdomen/GI: Bowel sounds: normal, Palpation: abdomen is soft and non-tender, in all quadrants. 23:26 Back: Exam negative for acute changes. 23:26 : Exam negative for acute changes. 23:26 Musculoskeletal/extremity: Exam is negative for acute changes. 23:26 Skin: Exam negative for rash. 23:26 Neuro: Orientation: is normal, Mentation: is normal, Cranial nerves: grossly normal, Motor: is normal. Vital Signs: 22:18 BP 143 / 91; Pulse 95; Resp 20; Temp 97.7(O); Pulse Ox 97% on R/A; Weight 63.5 kg (R); fc Height 5 ft. 5 in. (165.10 cm) (R); Pain 0/10; 23:15 BP 139 / 79; Pulse 81; Resp 18; Pulse Ox 98% on R/A; Pain 0/10; fc 23:42 BP 118 / 66; Pulse 76; Resp 20; Temp 98.2(O); Pulse Ox 99% on R/A; Pain 0/10; fc 22:18 Body Mass Index 23.30 (63.50 kg, 165.10 cm) MDM: 22:23 Patient medically screened. pkl 23:26 Data reviewed: vital signs, nurses notes. ED course: Patient feeling better. Breathing pkl improved. Administered Medications: 22:30 Drug: Albuterol - atroVENT (3:1) (2.5 mg - 0.5 mg) 3 ml Route: Nebulizer; fc 23:27 Follow up: Response: No adverse reaction; Marked relief of symptoms fc 22:50 Drug: SOLU-Medrol 125 mg Route: IM; Site: right gluteus; fc 23:27 Follow up: Response: No adverse reaction; Marked relief of symptoms fc Disposition: 10/29/19 23:31 Discharged to Home. Impression: Asthma exacerbation. - Condition is Stable. - Prescriptions for Albuterol Sulfate 90 mcg/actuation - inhale 1-2 puff by INHALATION route every 4-6 hours; 1 Inhaler. Albuterol Sulfate 2.5 mg /3 mL (0.083 %) Inhalation Solution for Nebulization - inhale 1 unit by NEBULIZATION route every 8 hours As needed; 1 box. - Medication Reconciliation Form, Thank You Letter, Antibiotic Education, Prescription Opioid Use form. - Follow up: Private Physician; When: 2 - 3 days; Reason: Re-evaluation by your physician. - Problem is new. - Symptoms have improved. Signatures: Joni See MD MD pkl Magda Escobedo RN RN fc Corrections: (The following items were deleted from the chart) 23:45 23:31 10/29/2019 23:31 Discharged to Home. Impression: Asthma exacerbation. Condition fc is Stable. Forms are Medication Reconciliation Form, Thank You Letter, Antibiotic Education, Prescription Opioid Use. Follow up: Private Physician; When: 2 - 3 days; Reason: Re-evaluation by your physician. Problem is new. Symptoms have improved. pkl
--- NOTE | 2019-10-29 23:33 | ER ---
Nurse's Notes [facility] Name: Donell Rodriguez Age: 29 yrs Sex: Male : 1990 Arrival Date: 10/29/2019 Time: 22:19 Bed 18 Private MD: Diagnosis: Asthma exacerbation Presentation: 10/29 22:18 Presenting complaint: Patient states: that he is having trouble with his asthma and is fc out of his inhaler. Also has occasional cough with clear sputum. Transition of care: patient was not received from another setting of care. Onset of symptoms was October 29, 2019. Risk Assessment: Do you want to hurt yourself or someone else? Patient reports no desire to harm self or others. Initial Sepsis Screen: Does the patient meet any 2 criteria? HR > 90 bpm. Yes Does the patient have a suspected source of infection? No. Patient's initial sepsis screen is negative. Care prior to arrival: None. 22:18 Method Of Arrival: Ambulatory 22:18 Acuity: RICHARD 3 Triage Assessment: 22:18 General: Appears comfortable, slender, Behavior is calm, cooperative, appropriate for age. Pain: Denies pain. EENT: No deficits noted. Neuro: Level of Consciousness is awake, alert, obeys commands, Oriented to person, place, time, situation, Appropriate for age. Cardiovascular: No deficits noted. Respiratory: Airway is patent Respiratory effort is even, unlabored, Respiratory pattern is regular, symmetrical, Breath sounds with wheezes bilaterally. Onset: The symptoms/episode began/occurred gradually, the patient has mild shortness of breath. GI: No deficits noted. : No signs and/or symptoms were reported regarding the genitourinary system. Derm: Skin is pink, warm \T\ dry. Musculoskeletal: Circulation, motion, and sensation intact. Capillary refill < 3 seconds, Range of motion: intact in all extremities. Historical: - Allergies: 22:47 No Known Allergies; fc - Home Meds: 22:47 albuterol sulfate 90 mcg/actuation Inhl HFAA 2 puffs every 4 hours [Active]; fc - PMHx: 22:47 Anxiety; Asthma; Allergies; fc - PSHx: 22:47 None; fc - Immunization history:: Last tetanus immunization: up to date. - Social history:: Smoking status: Patient/guardian denies using tobacco, Patient/guardian denies using alcohol, street drugs. - Ebola Screening: : Patient negative for fever greater than or equal to 101.5 degrees Fahrenheit, and additional compatible Ebola Virus Disease symptoms Patient denies exposure to infectious person Patient denies travel to an Ebola-affected area in the 21 days before illness onset. Screenin:18 Abuse screen: Denies threats or abuse. Nutritional screening: No deficits noted. fc Tuberculosis screening: No symptoms or risk factors identified. Fall Risk None identified. Assessment: 22:25 Reassessment: No changes from previously documented assessment. Patient and/or family fc updated on plan of care and expected duration. Pain level reassessed. Patient is alert, oriented x 3, equal unlabored respirations, skin warm/dry/pink. see triage assessment. Dr See at bedside to examine pt. 22:50 Reassessment: Pt continues to get neb tx with no noted distress. fc 23:26 Reassessment: Patient and/or family updated on plan of care and expected duration. Pain fc level reassessed. Patient is alert, oriented x 3, equal unlabored respirations, skin warm/dry/pink. Pt states that he is ready to go home now, feeling better. Pt has clear sounds to bilateral lungs. notified. Vital Signs: 22:18 BP 143 / 91; Pulse 95; Resp 20; Temp 97.7(O); Pulse Ox 97% on R/A; Weight 63.5 kg (R); fc Height 5 ft. 5 in. (165.10 cm) (R); Pain 0/10; 23:15 BP 139 / 79; Pulse 81; Resp 18; Pulse Ox 98% on R/A; Pain 0/10; fc 23:42 BP 118 / 66; Pulse 76; Resp 20; Temp 98.2(O); Pulse Ox 99% on R/A; Pain 0/10; fc 22:18 Body Mass Index 23.30 (63.50 kg, 165.10 cm) ED Course: 22:18 Arm band placed on Patient placed in an exam room, on a stretcher. fc 22:18 Patient has correct armband on for positive identification. Bed in low position. Call fc light in reach. Pulse ox on. NIBP on. 22:18 No provider procedures requiring assistance completed. fc 22:19 Patient arrived in ED. es 22:23 Joni See MD is Attending Physician. pkl 22:43 Triage completed. 23:44 Patient did not have IV access during this emergency room visit. fc Administered Medications: 22:30 Drug: Albuterol - atroVENT (3:1) (2.5 mg - 0.5 mg) 3 ml Route: Nebulizer; 23:27 Follow up: Response: No adverse reaction; Marked relief of symptoms 22:50 Drug: SOLU-Medrol 125 mg Route: IM; Site: right gluteus; 23:27 Follow up: Response: No adverse reaction; Marked relief of symptoms fc Outcome: 23:31 Discharge ordered by . pkl 23:43 Discharged to home ambulatory, with friend. 23:43 Condition: good 23:43 Discharge instructions given to patient, Instructed on discharge instructions, follow up and referral plans. medication usage, Demonstrated understanding of instructions, follow-up care, medications, Prescriptions given X 3. 23:45 Patient left the ED. Signatures: Joni See MD MD pkl Radha Clarke Felicia, RN RN
[2019-10-29 23:58] VITALS: BP 118/66; TEMP 98.2; O2SAT 99
== END 2019-10-29 23:45 | disposition home or self-care (01) ==
LOC: ER 22:15
DX: J45.901 Unspecified asthma with (acute) exacerbation (principal)
CPT/HCPCS: 94640; 96372; 99284; J2930

== ENCOUNTER 2019-12-25 19:52 | Emergency (ER) | payer SELFPAY ==
[2019-12-25] MEDS ORDERED: METHYLPREDNISOLONE 125 MG INJ ONE (20:32)
[2019-12-25] MEDS ORDERED: ALBUTEROL 2.5 MG/3 ML NEB SOL ONE ×2 (20:32→21:52)
[2019-12-25] MEDS ORDERED: NA CHLORIDE 0.9% 1,000 ML ONE (20:32)
[2019-12-25] MEDS ORDERED: IPRATROPIUM BROM 0.5MG/2.5ML ONE (20:32)
[2019-12-25] MEDS ORDERED: Magnesium Sulfate 2gm IVPB 2 G/50 ML BAG IV ONE (20:33)
--- NOTE | 2019-12-25 20:40 | RAD REPORT ---
EXAM DESCRIPTION: RAD - Chest Pa And Lat (2 Views) - 12/25/2019 8:33 pm CLINICAL HISTORY: Cough;Congestion Chest pain. COMPARISON: Chest Pa And Lat (2 Views) dated 05/24/2019; Chest Single View dated 12/19/2016; Chest Sin gle View dated 11/04/2016; Chest Single View dated 10/12/2016 FINDINGS: The lungs are clear. The heart is normal in size. No displaced fractures. IMPRESSION: No acute or concerning finding suspected.
--- NOTE | 2019-12-25 22:34 | ER ---
Nurse's Notes [facility] Name: Donell Rodriguez Age: 29 yrs Sex: Male : 1990 Arrival Date: 12/25/2019 Time: 19:54 Bed 15 Private MD: Diagnosis: Unspecified asthma with (acute) exacerbation Presentation: 12/25 20:01 Chief complaint: Patient states: I have asthma, I havent had my inhaler for a day now, sg I ran out of my albuterol, Noa had a cough with thick white sputum, reports having no fever at home. Coronavirus screen: The patient has NOT traveled to [place] in the past 14 days. The patient has NOT had contact with known and/or suspected case of Coronavirus. Ebola Screen: Patient negative for fever greater than or equal to 101.5 degrees Fahrenheit, and additional compatible Ebola Virus Disease symptoms Patient denies exposure to infectious person. Patient denies travel to an Ebola-affected area in the 21 days before illness onset. No symptoms or risks identified at this time. Initial Sepsis Screen: Does the patient meet any 2 criteria? No. Patient's initial sepsis screen is negative. Does the patient have a suspected source of infection? No. Patient's initial sepsis screen is negative. Risk Assessment: Do you want to hurt yourself or someone else? Patient reports no desire to harm self or others. 20:01 Method Of Arrival: Ambulatory sg 20:01 Acuity: RICHARD 3 sg 20:11 Onset of symptoms is unknown. ao Historical: - Allergies: 20:01 No Known Allergies; sg - Home Meds: 20:12 albuterol sulfate 90 mcg/actuation Inhl HFAA 2 puffs every 4 hours [Active]; ao - PMHx: 20:01 allergies; Anxiety; Asthma; sg - PSHx: 20:01 None; sg - Immunization history:: Adult Immunizations not up to date. - Social history:: Smoking status: Patient denies any tobacco usage or history of. Screenin:11 Abuse screen: Denies threats or abuse. Denies injuries from another. Nutritional ao screening: No deficits noted. Tuberculosis screening: No symptoms or risk factors identified. Fall Risk None identified. Assessment: 20:09 General: Appears in no apparent distress. comfortable, well groomed, well developed, ao well nourished, Behavior is calm, cooperative, appropriate for age. Pain: Denies pain. Neuro: Level of Consciousness is awake, Oriented to person, place, time, situation, Appropriate for age [employer] are equal bilaterally Moves all extremities. Full function Facial symmetry appears normal. Cardiovascular: Capillary refill < 3 seconds Patient's skin is warm and dry. Respiratory: Airway is patent Respiratory effort is even, unlabored, Respiratory pattern is regular, symmetrical. GI: Abdomen is flat, non-distended. : No signs and/or symptoms were reported regarding the genitourinary system. EENT: No signs and/or symptoms were reported regarding the EENT system. Derm: Skin is intact, Skin is pink, warm \T\ dry. normal, Skin temperature is warm. Musculoskeletal: Circulation, motion, and sensation intact. Range of motion: intact in all extremities. 21:11 Reassessment: Patient appears in no apparent distress at this time. Patient and/or ao family updated on plan of care and expected duration. Pain level reassessed. Pt is states can breath better. 22:20 Reassessment: Patient appears in no apparent distress at this time. Patient and/or ao family updated on plan of care and expected duration. Pain level reassessed. 22:55 Reassessment: Dc given to patient. Patient agree with POC and to followup with PCP. ao Vital Signs: 20:01 BP 146 / 82; Pulse 89; Resp 18; Temp 97.7; Pulse Ox 100% on R/A; Weight 63.05 kg (R); sg Height 5 ft. 7 in. (170.18 cm); Pain 0/10; 21:12 BP 131 / 81; Pulse 84; Resp 19; Pulse Ox 100% on R/A; Pain 0/10; ao 22:19 BP 130 / 84; Pulse 96; Resp 18; Pulse Ox 99% on R/A; Pain 0/10; ao 22:55 BP 124 / 80; Pulse 98; Resp 16; Pulse Ox 100% on R/A; Pain 0/10; ao 20:01 Body Mass Index 21.77 (63.05 kg, 170.18 cm) ED Course: 19:54 Patient arrived in ED. ag3 20:00 Arm band placed on. sg 20:01 Kassi Rodriguez FNP-C is PHCP. kb 20:01 Joni See MD is Attending Physician. kb 20:08 Triage completed. sg 20:09 Sergio Cuevas, RN is Primary Nurse. ao 20:11 Patient has correct armband on for positive identification. Pulse ox on. NIBP on. ao 20:33 Chest Pa And Lat (2 Views) XRAY In Process Unspecified. EDMS 20:49 Inserted saline lock: 20 gauge in right antecubital area, using aseptic technique. ao Blood collected. 22:54 No provider procedures requiring assistance completed. IV discontinued, intact, ao bleeding controlled, No redness/swelling at site. Pressure dressing applied. Administered Medications: 20:48 Drug: NS 0.9% 1000 ml Route: IV; Rate: 1000 ml; Site: right antecubital; ao 20:48 Drug: DuoNeb (3:1) (2.5 mg - 0.5 mg) 3 ml Route: Nebulizer; ao 20:49 Drug: Magnesium Sulfate 2 grams Route: IVPB; Infused Over: 2 hrs; Site: right ao antecubital; 20:49 Drug: SOLU-Medrol 125 mg Route: IVP; Site: right antecubital; ao 21:49 Drug: Albuterol 2.5 mg Route: Inhalation; ao Outcome: 22:33 Discharge ordered by MD. kb 22:55 Discharged to home ambulatory. ao 22:55 Condition: stable 22:55 Discharge instructions given to patient, Instructed on discharge instructions, follow up and referral plans. Demonstrated understanding of instructions, follow-up care, medications, Prescriptions given X 2. 22:56 Patient left the ED. ao Signatures: Dispatcher [employer] EDLA Kassi Rodriguez, VAISHALI-C VAISHALI-Lakhwinder Boyd RN RN sg Ortiz, Alex, RN RN ao Perla Tinsley ag3 Corrections: (The following items were deleted from the chart) 20:21 20:01 Acuity: RICHARD 4 [facility]
--- NOTE | 2019-12-25 22:34 | EDPHYS ---
Physician Documentation [facility] Name: Donell Rodriguez Age: 29 yrs Sex: Male : 1990 Arrival Date: 12/25/2019 Time: 19:54 Bed 15 Private MD: ED Physician Joni See HPI: 12/26 00:57 This 29 yrs old Male presents to ER via Ambulatory with complaints of Cough. kb 00:57 The patient has experienced similar episodes in the past, chronically. The patient has kb not recently seen a physician. 00:58 The patient presents to the emergency department with wheezing, Current therapy: kb albuterol inhaler, albuterol nebs, out of both, the patient was reported to have audible wheezing, chest congestion, non-productive cough, trouble breathing. Onset: The symptoms/episode began/occurred 3 day(s) ago. Modifying factors: The symptoms are alleviated by nothing, the symptoms are aggravated by nothing. Associated signs and symptoms: The patient has no apparent associated signs or symptoms. Severity of symptoms: At their worst the symptoms were moderate in the emergency department the symptoms are unchanged. Historical: - Allergies: 12/25 20:01 No Known Allergies; sg - Home Meds: 20:12 albuterol sulfate 90 mcg/actuation Inhl HFAA 2 puffs every 4 hours [Active]; ao - PMHx: 20:01 allergies; Anxiety; Asthma; sg - PSHx: 20:01 None; sg - Immunization history:: Adult Immunizations not up to date. - Social history:: Smoking status: Patient denies any tobacco usage or history of. ROS: 12/26 00:58 Constitutional: Negative for fever, chills, and weight loss, ENT: Negative for injury, kb pain, and discharge, Neck: Negative for injury, pain, and swelling, Cardiovascular: Negative for chest pain, palpitations, and edema, Abdomen/GI: Negative for abdominal pain, nausea, vomiting, diarrhea, and constipation, Back: Negative for injury and pain, MS/Extremity: Negative for injury and deformity, Skin: Negative for injury, rash, and discoloration, Neuro: Negative for headache, weakness, numbness, tingling, and seizure. Respiratory: Positive for cough, with no reported sputum, shortness of breath, wheezing. Exam: 00:58 Constitutional: This is a well developed, well nourished patient who is awake, alert, kb and in no acute distress. Head/Face: Normocephalic, atraumatic. ENT: Nares patent. No nasal discharge, no septal abnormalities noted. Tympanic membranes are normal and external auditory canals are clear. Oropharynx with no redness, swelling, or masses, exudates, or evidence of obstruction, uvula midline. Mucous membranes moist. Neck: Trachea midline, no thyromegaly or masses palpated, and no cervical lymphadenopathy. Supple, full range of motion without nuchal rigidity, or vertebral point tenderness. No Meningismus. Chest/axilla: Normal chest wall appearance and motion. Nontender with no deformity. No lesions are appreciated. Cardiovascular: Regular rate and rhythm with a normal S1 and S2. No gallops, murmurs, or rubs. Normal PMI, no JVD. No pulse deficits. Abdomen/GI: Soft, non-tender, with normal bowel sounds. No distension or tympany. No guarding or rebound. No evidence of tenderness throughout. Back: No spinal tenderness. No costovertebral tenderness. Full range of motion. Skin: Warm, dry with normal turgor. Normal color with no rashes, no lesions, and no evidence of cellulitis. MS/ Extremity: Pulses equal, no cyanosis. Neurovascular intact. Full, normal range of motion. Neuro: Awake and alert, GCS 15, oriented to person, place, time, and situation. Cranial nerves II-XII grossly intact. Motor strength 5/5 in all extremities. Sensory grossly intact. Cerebellar exam normal. Normal gait. 00:58 Respiratory: the patient does not display signs of respiratory distress, Respirations: normal, Breath sounds: wheezing: inspiratory expiratory that is moderate, is heard diffusely. Vital Signs: 12/25 20:01 BP 146 / 82; Pulse 89; Resp 18; Temp 97.7; Pulse Ox 100% on R/A; Weight 63.05 kg (R); sg Height 5 ft. 7 in. (170.18 cm); Pain 0/10; 21:12 BP 131 / 81; Pulse 84; Resp 19; Pulse Ox 100% on R/A; Pain 0/10; ao 22:19 BP 130 / 84; Pulse 96; Resp 18; Pulse Ox 99% on R/A; Pain 0/10; ao 22:55 BP 124 / 80; Pulse 98; Resp 16; Pulse Ox 100% on R/A; Pain 0/10; ao 20:01 Body Mass Index 21.77 (63.05 kg, 170.18 cm) sg MDM: 20:04 Patient medically screened. kb 12/26 00:57 Data reviewed: vital signs, nurses notes. Data interpreted: Pulse oximetry: on room air kb is 100 %. Interpretation: normal. Counseling: I had a detailed discussion with the patient and/or guardian regarding: the historical points, exam findings, and any diagnostic results supporting the discharge/admit diagnosis, lab results, radiology results, the need for outpatient follow up, a family practitioner, to return to the emergency department if symptoms worsen or persist or if there are any questions or concerns that arise at home. ED course: Lungs sounds improved after treatments. Pt reports he feels better. . 12/25 20:19 Order name: Flu; Complete Time: 21:06 kb 12/25 20:19 Order name: Strep; Complete Time: 21:03 kb 12/25 20:19 Order name: Chest Pa And Lat (2 Views) XRAY; Complete Time: 20:44 kb 12/25 21:02 Order name: Throat Culture EDMS 12/25 20:19 Order name: IV Start; Complete Time: 20:49 kb Administered Medications: 12/25 20:48 Drug: NS 0.9% 1000 ml Route: IV; Rate: 1000 ml; Site: right antecubital; ao 20:48 Drug: DuoNeb (3:1) (2.5 mg - 0.5 mg) 3 ml Route: Nebulizer; ao 20:49 Drug: Magnesium Sulfate 2 grams Route: IVPB; Infused Over: 2 hrs; Site: right ao antecubital; 20:49 Drug: SOLU-Medrol 125 mg Route: IVP; Site: right antecubital; ao 21:49 Drug: Albuterol 2.5 mg Route: Inhalation; ao Disposition: 12/26 01:53 Co-signature as Attending Physician, Joni See MD. pkl Disposition: 12/25/19 22:33 Discharged to Home. Impression: Unspecified asthma with (acute) exacerbation. - Condition is Stable. - Discharge Instructions: Asthma, Adult, [id number]. - Prescriptions for Prednisone 20 mg Oral Tablet - take 1 tablet by ORAL route once daily for 5 days; 5 tablet. Albuterol Sulfate 2.5 mg /3 mL (0.083 %) Inhalation Solution for Nebulization - inhale 1 unit by NEBULIZATION route every 8 hours As needed; 1 box. Albuterol Sulfate 90 mcg/actuation - inhale 1-2 puff by INHALATION route every 4-6 hours; 1 Inhaler. - Medication Reconciliation Form, Thank You Letter, Antibiotic Education, Prescription Opioid Use form. - Follow up: Emergency Department; When: As needed; Reason: Worsening of condition. Follow up: Private Physician; When: 2 - 3 days; Reason: Recheck today's complaints, Continuance of care, Re-evaluation by your physician. Signatures: Dispatcher [employer] EDKassi Beckford, USMAN TOM-Lakhwinder Boyd, RN RN Joni Gaines MD MD pkl Ortiz, Alex, RN RN ao Corrections: (The following items were deleted from the chart) 12/25 22:56 22:33 12/25/2019 22:33 Discharged to Home. Impression: Unspecified asthma with (acute) ao exacerbation. Condition is Stable. Forms are Medication Reconciliation Form, Thank You Letter, Antibiotic Education, Prescription Opioid Use. Follow up: Emergency Department; When: As needed; Reason: Worsening of condition. Follow up: Private Physician; When: 2 - 3 days; Reason: Recheck today's complaints, Continuance of care, Re-evaluation by your physician. kb
[2019-12-25 23:27] VITALS: TEMP 97.7
[2019-12-25 23:32] VITALS: BP 124/80; O2SAT 100
== END 2019-12-25 22:56 | disposition home or self-care (01) ==
LOC: ER 19:52
DX: J45.901 Unspecified asthma with (acute) exacerbation (principal)
CPT/HCPCS: 71046; 87070; 87081; 87804; 94640; 96374; 96375; 99284; J2930; J3475; J7030

== ENCOUNTER 2020-02-26 14:17 | Emergency (ER) | payer SELFPAY ==
[2020-02-26] MEDS ORDERED: dexAMETHasone 4 MG TAB ONE (14:48)
--- NOTE | 2020-02-26 14:48 | RAD REPORT ---
EXAM DESCRIPTION: RAD - Chest Single View - 02/26/2020 2:43 pm CLINICAL HISTORY: cough, shortness of breath Chest pain. COMPARISON: Chest Pa And Lat (2 Views) dated 12/25/2019; Chest Pa And Lat (2 Views) dated 05/24/2019; Chest Single View dated 12/19/2016; Chest Single View dated 11/04/2016 FINDINGS: Portable technique limits examination quality. The lungs are grossly clear. The heart is normal in size. No displaced fractures. IMPRESSION: No acute intrathoracic process suspected.
[2020-02-26] MEDS ORDERED: LEVALBUTEROL 1.25 MG/3 ML NEB ONE (14:49)
--- NOTE | 2020-02-26 16:40 | EDPHYS ---
Physician Documentation [facility] Name: Donell Rodriguez Age: 29 yrs Sex: Male : 1990 Arrival Date: 02/26/2020 Time: 14:20 Bed 15 Private MD: ED Physician Nain Loaiza HPI: 02/25 14:26 This 29 yrs old Male presents to ER via Ambulatory with complaints of jmm Breathing Difficulty. 14:26 The patient has shortness of breath at rest. Onset: The symptoms/episode began/occurred jmm gradually, chronic. The patient's shortness of breath is aggravated by nothing. Associated signs and symptoms: Pertinent positives: non-productive cough, Pertinent negatives: fever. This is a 29 year old male with a history of asthma that presents to the ED with complaints of cough, shortness of breath which the patient states is chronic. Symptoms have worsened over the past 3 days. Denies fever. Patient states he is out of his albuterol. . Historical: - Allergies: 14:31 No Known Allergies; ll1 - PMHx: 14:31 allergies; Anxiety; Asthma; ll1 - PSHx: 14:31 None; ll1 - Immunization history:: Adult Immunizations up to date. - Social history:: Smoking status: Patient denies any tobacco usage or history of. Patient/guardian denies using alcohol, street drugs, tobacco products. ROS: 14:26 Constitutional: Negative for fever, chills, and weight loss, Cardiovascular: Negative jmm for chest pain, palpitations, and edema. 14:26 Respiratory: Positive for cough, wheezing. 14:26 All other systems are negative. Exam: 14:26 Constitutional: This is a well developed, well nourished patient who is awake, alert, jmm and in no acute distress. Head/Face: atraumatic. Eyes: EOMI, no conjunctival erythema appreciated ENT: Moist Mucus Membranes Neck: Trachea midline, Supple Chest/axilla: Normal chest wall appearance and motion. Cardiovascular: Regular rate and rhythm. No edema appreciated 14:26 Abdomen/GI: Non distended, soft Back: Normal ROM Skin: General appearance color normal MS/ Extremity: Moves all extremities, no obvious deformities appreciated, no edema noted to the lower extremities Neuro: Awake and alert, normal gait Psych: Behavior is normal, Mood is normal, Patient is cooperative and pleasant 14:26 Respiratory: the patient does not display signs of respiratory distress, Respirations: normal, Breath sounds: wheezing: that is moderate, is heard diffusely. Vital Signs: 14:28 BP 146 / 103; Pulse 98; Resp 18; Temp 98.5; Pulse Ox 98% ; Pain 0/10; ll1 MDM: 14:[address] [facility] 16:37 Data reviewed: vital signs, nurses notes. Counseling: I had a detailed discussion with matt the patient and/or guardian regarding: the historical points, exam findings, and any diagnostic results supporting the discharge/admit diagnosis, radiology results, the need for outpatient follow up, to return to the emergency department if symptoms worsen or persist or if there are any questions or concerns that arise at home. ED course: Lungs CTA on reexamination. Patient states he feels much better. Most likely asthma exacerbation. CXR clear, patient is afebrile. Patient will be treated with oral steroids and is otherwise given strict return precautions. Patient understood and agrees with the plan of care. . 02/25 14:33 Order name: Chest Single View XRAY; Complete Time: 14:51 [facility] Administered Medications: 14:47 Drug: Decadron 10 mg Route: PO; vc 15:15 Follow up: Response: No adverse reaction vc 14:48 Drug: Xopenex (3) 1.25 mg Route: Inhalation; vc Disposition: 02/26 11:25 Co-signature as Attending Physician, Nain Loaiza MD I agree with the assessment and [facility] plan of care. Disposition: 02/26/20 16:40 Discharged to Home. Impression: Mild intermittent asthma with (acute) exacerbation. - Condition is Stable. - Discharge Instructions: Asthma, Adult. - Prescriptions for Prednisone 20 mg Oral Tablet - take 3 tablet by ORAL route once daily for 5 days; 15 tablet. Albuterol Sulfate 90 mcg/actuation - inhale 1-2 puff by INHALATION route every 4-6 hours; 1 Inhaler. - Medication Reconciliation Form, Thank You Letter, Antibiotic Education, Prescription Opioid Use form. - Follow up: Private Physician; When: 2 - 3 days; Reason: Recheck today's complaints, Continuance of care, Re-evaluation by your physician. Signatures: Dispatcher [employer] Nain Roche MD MD cha Mickail, Joel, PA PA jmm Calcote, Jeimy, RN RN Parrish Brito RN RN ll1 Corrections: (The following items were deleted from the chart) 02/25 16:47 16:40 02/26/2020 16:40 Discharged to Home. Impression: Mild intermittent asthma with vc (acute) exacerbation. Condition is Stable. Forms are Medication Reconciliation Form, Thank You Letter, Antibiotic Education, Prescription Opioid Use. Follow up: Private Physician; When: 2 - 3 days; Reason: Recheck today's complaints, Continuance of care, Re-evaluation by your physician. matt
--- NOTE | 2020-02-26 16:40 | ER ---
Nurse's Notes [facility] Name: Donell Rodriguez Age: 29 yrs Sex: Male : 1990 Arrival Date: 02/26/2020 Time: 14:20 Bed 15 Private MD: Diagnosis: Mild intermittent asthma with (acute) exacerbation Presentation: 02/25 14:28 Chief complaint: Patient states: Reports episode of SOB with wheezing everyday for ll1 years. Usually gets better with a hot shower. No cough or fever. Coronavirus screen: Proceed with normal triage. Patient denies a cough. Patient reports shortness of breath or difficulty breathing. Patient denies measured and/or subjective temperature greater than 100.4F prior to today's visit. Patient denies travel on a cruise ship or to a country the [facility] currently lists as an affected area. Patient denies contact with known and/or suspected case of COVID-19. Ebola Screen: Patient denies travel to an Ebola-affected area in the 21 days before illness onset. Initial Sepsis Screen: Does the patient meet any 2 criteria? HR > 90 bpm. No. Patient's initial sepsis screen is negative. Does the patient have a suspected source of infection? No. Patient's initial sepsis screen is negative. Risk Assessment: Do you want to hurt yourself or someone else? Patient reports no desire to harm self or others. Note for years he states. Onset of symptoms is unknown. 14:28 Method Of Arrival: Ambulatory 1 14:28 Acuity: RICHARD 4 ll1 Triage Assessment: 14:30 General: Appears in no apparent distress. Behavior is calm. Respiratory: Reports vc shortness of breath Onset: The symptoms/episode began/occurred once a day for the last few years., the patient has mild shortness of breath. Historical: - Allergies: 14:31 No Known Allergies; ll1 - PMHx: 14:31 allergies; Anxiety; Asthma; ll1 - PSHx: 14:31 None; ll1 - Immunization history:: Adult Immunizations up to date. - Social history:: Smoking status: Patient denies any tobacco usage or history of. Patient/guardian denies using alcohol, street drugs, tobacco products. Screenin:30 Abuse screen: Denies threats or abuse. Nutritional screening: No deficits noted. vc Tuberculosis screening: No symptoms or risk factors identified. 14:30 Fall Risk None identified. vc Assessment: 14:30 General: Appears in no apparent distress. comfortable. Pain: Denies pain. Neuro: Level vc of Consciousness is awake, alert, obeys commands, Oriented to person, place, time, situation, Appropriate for age. Cardiovascular: Capillary refill < 3 seconds Patient's skin is warm and dry. Rhythm is regular. Respiratory: Reports shortness of breath Airway is patent Respiratory effort is even, unlabored, Respiratory pattern is regular, symmetrical, Breath sounds are clear. GI: No signs and/or symptoms were reported involving the gastrointestinal system. : No signs and/or symptoms were reported regarding the genitourinary system. EENT: No signs and/or symptoms were reported regarding the EENT system. Derm: Skin is healthy with good turgor. Musculoskeletal: Circulation, motion, and sensation intact. Range of motion: intact in all extremities. 15:30 Reassessment: Patient appears in no apparent distress at this time. Patient and/or vc family updated on plan of care and expected duration. Pain level reassessed. Patient is alert, oriented x 3, equal unlabored respirations, skin warm/dry/pink. 16:30 Reassessment: Patient appears in no apparent distress at this time. Patient and/or vc family updated on plan of care and expected duration. Pain level reassessed. Patient is alert, oriented x 3, equal unlabored respirations, skin warm/dry/pink. Patient denies pain at this time. Patient states feeling better. Patient states symptoms have improved. Vital Signs: 14:28 BP 146 / 103; Pulse 98; Resp 18; Temp 98.5; Pulse Ox 98% ; Pain 0/10; ll1 ED Course: 14:20 Patient arrived in ED. mr 14:22 Zaheer Trevizo PA is PHCP. jmm 14:22 Nain Loaiza MD is Attending Physician. jmm 14:30 Triage completed. ll1 14:31 Arm band placed on Patient placed in an exam room, on a stretcher. ll1 14:35 Patient has correct armband on for positive identification. Bed in low position. Call vc light in reach. Pulse ox on. NIBP on. 14:40 Jeimy Durham, KAREN is Primary Nurse. vc 14:43 Chest Single View XRAY In Process Unspecified. EDMS 15:15 Initial Neb Treatment Given as ordered Patient was instructed and evaluated on vc procedure Patient tolerated procedure well without adverse effect. 16:45 No provider procedures requiring assistance completed. Patient did not have IV access vc during this emergency room visit. Administered Medications: 14:47 Drug: Decadron 10 mg Route: PO; vc 15:15 Follow up: Response: No adverse reaction vc 14:48 Drug: Xopenex (3) 1.25 mg Route: Inhalation; vc Outcome: 16:40 Discharge ordered by . matt 16:45 Discharged to home ambulatory. vc 16:45 Condition: good 16:45 Discharge instructions given to patient, Instructed on discharge instructions, follow up and referral plans. medication usage, Demonstrated understanding of instructions, follow-up care, medications, Prescriptions given X 2. 16:47 Patient left the ED. vc Signatures: Dispatcher [employer] EDMS Zaheer Trevizo PA PA jmm Rivera, Mary mr Jeimy Durham RN RN vc Lewis, Lynsay, RN RN ll1
[2020-02-26 16:51] VITALS: BP 146/103; TEMP 98.5; O2SAT 98
== END 2020-02-26 16:47 | disposition home or self-care (01) ==
LOC: ER 14:17
DX: J45.21 Mild intermittent asthma with (acute) exacerbation (principal)
CPT/HCPCS: 71045; 99284; J8540

== ENCOUNTER 2020-06-19 23:01 | Emergency (ER) | payer SELFPAY ==
[2012-01-23 15:03] VITALS: BP 124/75
[2020-06-19] MEDS ORDERED: METHYLPREDNISOLONE 125 MG INJ ONE (23:33)
[2020-06-19] MEDS ORDERED: LEVALBUTEROL 1.25 MG/3 ML NEB ONE (23:33)
--- NOTE | 2020-06-20 00:12 | ER ---
Nurse's Notes [facility] Name: Donell Rodriguez Age: 30 yrs Sex: Male : 1990 Arrival Date: 06/19/2020 Time: 23:06 Bed 3 Private MD: Diagnosis: Mild intermittent asthma with (acute) exacerbation Presentation: 06/19 23:09 Chief complaint: Patient states: "I have a history of asthma and I am having a hard jd3 time breathing tonight. I think it might have been set off by my allergies.". Coronavirus screen: At this time, the client does not indicate any symptoms associated with coronavirus-19. Ebola Screen: Patient negative for fever greater than or equal to 101.5 degrees Fahrenheit, and additional compatible Ebola Virus Disease symptoms. Initial Sepsis Screen: Does the patient meet any 2 criteria? No. Patient's initial sepsis screen is negative. Does the patient have a suspected source of infection? No. Patient's initial sepsis screen is negative. Risk Assessment: Do you want to hurt yourself or someone else? Patient reports no desire to harm self or others. Onset of symptoms was June 17, 2020. 23:09 Method Of Arrival: Ambulatory jd3 23:09 Acuity: RICHARD 3 jd3 23:13 Note pt states: "albuterol nebulizer treatment and some sort of steroid help with this jd3 last time.". Historical: - Allergies: 23:11 No Known Allergies; jd3 - Home Meds: 23:11 albuterol sulfate 90 mcg/actuation Inhl HFAA 2 puffs every 4 hours [Active]; jd3 - PMHx: 23:11 Anxiety; Asthma; allergies; jd3 - PSHx: 23:11 None; jd3 - Immunization history:: Adult Immunizations up to date. - Social history:: Smoking status: Patient denies any tobacco usage or history of. - Family history:: not pertinent. - Hospitalizations: : No recent hospitalization is reported. Screenin:26 Abuse screen: Denies threats or abuse. Denies injuries from another. Nutritional rv screening: No deficits noted. Tuberculosis screening: No symptoms or risk factors identified. Fall Risk None identified. Assessment: 23:25 General: Appears comfortable, Behavior is calm, cooperative. Pain: Denies pain. Neuro: rv Level of Consciousness is awake, alert, obeys commands, Oriented to person, place, time, situation. Cardiovascular: Patient's skin is warm and dry. Respiratory: Airway is patent Breath sounds with wheezes bilaterally. Derm: Skin is intact. 06/20 00:36 Reassessment: Patient states feeling better. Patient states symptoms have improved. rv Neuro: Level of Consciousness is awake, alert, obeys commands, Oriented to person, place, time, situation. Respiratory: Airway is patent Respiratory effort is even, unlabored, Breath sounds are clear bilaterally. Vital Signs: 06/19 23:11 BP 132 / 89; Pulse 82; Resp 19 S; Temp 98.3(O); Pulse Ox 97% on R/A; Weight 63.5 kg jd3 (R); Height 5 ft. 5 in. (165.10 cm) (R); Pain 0/10; 06/20 00:38 BP 125 / 80; Pulse 78; Resp 17; Temp 98; Pulse Ox 98% on R/A; rv 06/19 23:11 Body Mass Index 23.30 (63.50 kg, 165.10 cm) jd3 ED Course: 06/19 23:06 Patient arrived in ED. bg2 23:10 Triage completed. jd3 23:11 Arm band placed on. jd3 23:12 Souleymane Gonzalez MD is Attending Physician. rn 23:23 Ruddy Muniz RN is Primary Nurse. rv 23:26 Patient has correct armband on for positive identification. Pulse ox on. NIBP on. rv 23:26 Inserted saline lock: 20 gauge in left forearm, using aseptic technique. rv 06/20 00:22 XRAY Chest (1 view) In Process Unspecified. EDMS 00:37 No provider procedures requiring assistance completed. IV discontinued, intact, rv bleeding controlled, No redness/swelling at site. Pressure dressing applied. Administered Medications: 06/19 23: Drug: SOLU-Medrol 125 mg Route: IVP; Site: left forearm; rv 06/20 00:37 Follow up: Response: No adverse reaction; Marked relief of symptoms rv 06/19 23:27 Drug: Xopenex (3) 1.25 mg Route: Inhalation; rv 06/20 00:38 Follow up: Response: No adverse reaction; Marked relief of symptoms rv Outcome: 00:11 Discharge ordered by . rn 00:37 Discharged to home ambulatory. rv 00:37 Condition: improved 00:37 Discharge instructions given to patient, Instructed on discharge instructions, follow up and referral plans. medication usage, Demonstrated understanding of instructions, follow-up care, medications, Prescriptions given X 2. 00:38 Patient left the ED. rv Signatures: Dispatcher [employer] EDMS Souleymane Gonzalez MD MD rn Glass, Brittany [facility] Riley Lewis RN RN jd3 Ruddy Muniz RN RN rv
--- NOTE | 2020-06-20 00:12 | EDPHYS ---
Physician Documentation [facility] Name: Donell Rodriguez Age: 30 yrs Sex: Male : 1990 Arrival Date: 06/19/2020 Time: 23:06 Bed 3 Private MD: ED Physician Souleymane Gonzalez HPI: 06/19 23:19 This 30 yrs old Male presents to ER via Ambulatory with complaints of Asthma rn Exacerbation. 23:19 The patient presents to the emergency department with wheezing, the patient was rn reported to have non-productive cough, trouble breathing. Onset: The symptoms/episode began/occurred 2 day(s) ago. Modifying factors: The symptoms are alleviated by nothing, the symptoms are aggravated by nothing. Severity of symptoms: At their worst the symptoms were mild in the emergency department the symptoms are unchanged. The patient has experienced similar episodes in the past. Reports mild symptoms of asthma attack, ran out of inhaler recently, no fever, + mild cough, no known sick contacts, no hemoptysis, no chills/change in smell or taste/diarrhea/chest pain/abd pain/headache. Reports identical to previous asthma problems, and mild compared to others. . Historical: - Allergies: 23:11 No Known Allergies; jd3 - Home Meds: 23:11 albuterol sulfate 90 mcg/actuation Inhl HFAA 2 puffs every 4 hours [Active]; jd3 - PMHx: 23:11 Anxiety; Asthma; allergies; jd3 - PSHx: 23:11 None; jd3 - Immunization history:: Adult Immunizations up to date. - Social history:: Smoking status: Patient denies any tobacco usage or history of. - Family history:: not pertinent. - Hospitalizations: : No recent hospitalization is reported. ROS: 23:19 Constitutional: Negative for fever, chills, and weight loss, Eyes: Negative for injury, rn pain, redness, and discharge, Neck: Negative for injury, pain, and swelling, Cardiovascular: Negative for chest pain, palpitations, and edema, Respiratory: Negative for pleuritic chest pain Abdomen/GI: Negative for abdominal pain, nausea, vomiting, diarrhea, and constipation, MS/Extremity: Negative for injury and deformity, Skin: Negative for injury, rash, and discoloration, Neuro: Negative for headache, weakness, numbness, tingling, and seizure. Exam: 23:19 Constitutional: This is a well developed, well nourished patient who is awake, alert, rn and in no acute distress. Ambulatory to room without difficulty or assistance. Head/Face: Normocephalic, atraumatic. ENT: No stridor Cardiovascular: Regular rate and rhythm. No pulse deficits. Respiratory: Unlabored breathing, no retractions, speaking full sentences. Abdomen/GI: soft, non-tender MS/ Extremity: Pulses equal, no cyanosis. Neurovascular intact. Full, normal range of motion. Equal circumference. Neuro: Awake and alert, GCS 15, oriented to person, place, time, and situation. Cranial nerves II-XII grossly intact. Motor strength 5/5 in all extremities. Sensory grossly intact. Cerebellar exam normal. Normal gait. Vital Signs: 23:11 BP 132 / 89; Pulse 82; Resp 19 S; Temp 98.3(O); Pulse Ox 97% on R/A; Weight 63.5 kg jd3 (R); Height 5 ft. 5 in. (165.10 cm) (R); Pain 0/10; 06/20 00:38 BP 125 / 80; Pulse 78; Resp 17; Temp 98; Pulse Ox 98% on R/A; rv 06/19 23:11 Body Mass Index 23.30 (63.50 kg, 165.10 cm) jd3 MDM: 06/19 23:12 Patient medically screened. rn 23:23 Differential diagnosis: acute asthma, reactive airway. Data reviewed: vital signs, rn nurses notes. 06/20 00:11 Counseling: I had a detailed discussion with the patient and/or guardian regarding: the rn historical points, exam findings, and any diagnostic results supporting the discharge/admit diagnosis, radiology results, the need for outpatient follow up, to return to the emergency department if symptoms worsen or persist or if there are any questions or concerns that arise at home. Special discussion: I discussed with the patient/guardian in detail that at this point there is no indication for admission to the hospital. It is understood, however, that if the symptoms persist or worsen the patient needs to return immediately for re-evaluation. Based on the history and exam findings, there is no indication for further emergent testing or inpatient evaluation. I discussed with the patient/guardian the need to see the primary care provider for further evaluation of the symptoms. 00:11 ED course: Pt feels better, no oxygen requirement, no pneumonia on CXR or PTX, will dc rn home with steroids and inhaler. . 06/19 23:18 Order name: XRAY Chest (1 view) rn 06/19 23:18 Order name: IV Start; Complete Time: 23:27 rn Administered Medications: 06/19 23: Drug: SOLU-Medrol 125 mg Route: IVP; Site: left forearm; rv 06/20 00:37 Follow up: Response: No adverse reaction; Marked relief of symptoms rv 06/19 23:27 Drug: Xopenex (3) 1.25 mg Route: Inhalation; rv 06/20 00:38 Follow up: Response: No adverse reaction; Marked relief of symptoms rv Disposition: 06/20/20 00:11 Discharged to Home. Impression: Mild intermittent asthma with (acute) exacerbation. - Condition is Stable. - Discharge Instructions: Asthma, Adult. - Prescriptions for Prednisone 20 mg Oral Tablet - take 3 tablet by ORAL route once daily for 5 days; 15 tablet. Albuterol Sulfate 90 mcg/actuation - inhale 1-2 puff by INHALATION route every 4-6 hours; 1 Inhaler. - Medication Reconciliation Form, Thank You Letter, Antibiotic Education, Prescription Opioid Use form. - Follow up: Private Physician; When: As needed; Reason: Recheck today's complaints, Re-evaluation by your physician. - Problem is an acute exacerbation. - Symptoms have improved. Signatures: Dispatcher [employer] EDMS Souleymane Gonzalez MD MD rn Davies, Jonathon, RN RN jd3 Vicente, Ronaldo, RN RN rv Corrections: (The following items were deleted from the chart) 00:38 00:11 06/20/2020 00:11 Discharged to Home. Impression: Mild intermittent asthma with rv (acute) exacerbation. Condition is Stable. Discharge Instructions: Asthma, Adult. Prescriptions for Prednisone 20 mg Oral Tablet - take 3 tablet by ORAL route once daily for 5 days; 15 tablet, Albuterol Sulfate 90 mcg/actuation - inhale 1-2 puff by INHALATION route every 4-6 hours; 1 Inhaler. and Forms are Medication Reconciliation Form, Thank You Letter, Antibiotic Education, Prescription Opioid Use. Follow up: Private Physician; When: As needed; Reason: Recheck today's complaints, Re-evaluation by your physician. Problem is an acute exacerbation. Symptoms have improved. rn
--- NOTE | 2020-06-20 07:10 | RAD REPORT ---
EXAM DESCRIPTION: Vikas Single View06/20/2020 12:21 am CLINICAL HISTORY: Shortness breath COMPARISON: January 2020 FINDINGS: The lungs are hyperaerated. The lungs appear clear of acute infiltrate. The heart is normal size IMPRESSION: Hyperaerated lungs
== END 2020-06-20 00:38 | disposition home or self-care (01) ==
LOC: ER 23:01
DX: J45.21 Mild intermittent asthma with (acute) exacerbation (principal); F41.9 Anxiety disorder, unspecified
CPT/HCPCS: 71045; 96374; 99284; J2930

== ENCOUNTER 2020-08-08 08:05 | Emergency (ER) | payer SELFPAY ==
--- NOTE | 2020-08-08 08:17 | EDPHYS ---
Physician Documentation [facility] Name: Donell Rodriguez Age: 30 yrs Sex: Male : 1990 Arrival Date: 08/08/2020 Time: 08:08 Bed 20 Private MD: ED Physician Riley Sebastian HPI: 08/08 08:13 This 30 yrs old Male presents to ER via Unassigned with complaints of Bump in ps1 Face. 08:13 Patient has a pustule on left side of face. Onset was a day ago. No fever or chills. ps1 Mild pain. No medications taken. . Historical: - Allergies: 08:17 No Known Allergies; em - PMHx: 08:17 allergies; Anxiety; Asthma; em - PSHx: 08:17 None; em - Immunization history:: Adult Immunizations up to date. - Social history:: Smoking status: Patient denies any tobacco usage or history of. ROS: 08:13 Constitutional: Negative for fever, chills, and weight loss, Eyes: Negative for injury, ps1 pain, redness, and discharge, Abdomen/GI: Negative for abdominal pain, nausea, vomiting, diarrhea, and constipation, MS/Extremity: Negative for injury and deformity, Neuro: Negative for headache, weakness, numbness, tingling, and seizure. 08:13 Skin: Positive for abscess. Exam: 08:13 Constitutional: This is a well developed, well nourished patient who is awake, alert, ps1 and in no acute distress. Head/Face: Normocephalic, atraumatic. Eyes: Pupils equal round and reactive to light, extra-ocular motions intact. Lids and lashes normal. Conjunctiva and sclera are non-icteric and not injected. MS/ Extremity: Pulses equal, no cyanosis. Neurovascular intact. Full, normal range of motion. Neuro: Awake and alert, GCS 15, oriented to person, place, time, and situation. Cranial nerves II-XII grossly intact. Sensory grossly intact. 08:13 Skin: abscess, that is small, of the left jaw, with fluctuance, with induration. Vital Signs: 08:15 BP 129 / 87; Pulse 88; Resp 18; Temp 97.7(O); Pulse Ox 100% on R/A; Weight 63.5 kg; em Height 5 ft. 5 in. (165.10 cm); Pain 0/10; 08:15 Body Mass Index 23.30 (63.50 kg, 165.10 cm) em MDM: 08:13 Differential Diagnosis pustule, carbuncle, abscess, infection NOS, and others. Data ps1 reviewed: vital signs, nurses notes. Counseling: I had a detailed discussion with the patient and/or guardian regarding: the historical points, exam findings, and any diagnostic results supporting the discharge/admit diagnosis, to return to the emergency department if symptoms worsen or persist or if there are any questions or concerns that arise at home. 08:16 Patient medically screened. ps1 Administered Medications: No medications were administered Disposition: 08/08/20 08:16 Discharged to Home. Impression: Carbuncle of face. - Condition is Stable. - Discharge Instructions: Skin Abscess. - Prescriptions for Clindamycin HCl 150 mg Oral Capsule - take 1 capsule by ORAL route every 6 hours for 5 days; 20 capsule. - Medication Reconciliation Form, Thank You Letter, Antibiotic Education, Prescription Opioid Use form. - Follow up: Private Physician; When: As needed; Reason: Recheck today's complaints, Continuance of care. Follow up: Emergency Department; When: As needed; Reason: Fever > 102 F, Worsening of condition, loss of function, sunburn type rash, worsening condition. - Problem is new. - Symptoms are unchanged. Signatures: Familia Ray, RN RN em Riley Sebastian MD MD ps1 Corrections: (The following items were deleted from the chart) 08:23 08:16 08/08/2020 08:16 Discharged to Home. Impression: Carbuncle of face. Condition is em Stable. Forms are Medication Reconciliation Form, Thank You Letter, Antibiotic Education, Prescription Opioid Use. Follow up: Private Physician; When: As needed; Reason: Recheck today's complaints, Continuance of care. Follow up: Emergency Department; When: As needed; Reason: Fever > 102 F, Worsening of condition, loss of function, sunburn type rash, worsening condition. Problem is new. Symptoms are unchanged. ps1
--- NOTE | 2020-08-08 08:17 | ER ---
Nurse's Notes [facility] Name: Donell Rodriguez Age: 30 yrs Sex: Male : 1990 Arrival Date: 08/08/2020 Time: 08:08 Bed 20 Private MD: Diagnosis: Carbuncle of face Presentation: 08/08 08:15 Chief complaint: Patient states: bump on left side of face that has been there for em about a week, denies fever, swelling noted to the left side of face. Coronavirus screen: Client denies travel out of the [place] in the last 14 days. Ebola Screen: Patient negative for fever greater than or equal to 101.5 degrees Fahrenheit, and additional compatible Ebola Virus Disease symptoms Patient denies exposure to infectious person. Patient denies travel to an Ebola-affected area in the 21 days before illness onset. No symptoms or risks identified at this time. Initial Sepsis Screen: Does the patient meet any 2 criteria? No. Patient's initial sepsis screen is negative. Does the patient have a suspected source of infection? Yes: Skin breakdown/wound. Risk Assessment: Do you want to hurt yourself or someone else? Patient reports no desire to harm self or others. Onset of symptoms was August 01, 2020. 08:15 Method Of Arrival: Ambulatory em 08:15 Acuity: RICHARD 4 em Historical: - Allergies: 08:17 No Known Allergies; em - PMHx: 08:17 allergies; Anxiety; Asthma; em - PSHx: 08:17 None; em - Immunization history:: Adult Immunizations up to date. - Social history:: Smoking status: Patient denies any tobacco usage or history of. Screenin:17 Abuse screen: Denies threats or abuse. Nutritional screening: No deficits noted. em Tuberculosis screening: No symptoms or risk factors identified. Fall Risk None identified. Assessment: 08:18 General: Appears in no apparent distress. comfortable, Behavior is calm, cooperative, em appropriate for age. Pain: Denies pain. Neuro: Level of Consciousness is awake, alert, obeys commands, Oriented to person, place, time, situation, Appropriate for age. Cardiovascular: Capillary refill < 3 seconds Patient's skin is warm and dry. Respiratory: Airway is patent Respiratory effort is even, unlabored, Respiratory pattern is regular, symmetrical. Derm: Skin is intact, Skin is pink, warm \T\ dry. Abscess located on left jaw is dime sized. Musculoskeletal: Swelling present in left jaw. Vital Signs: 08:15 BP 129 / 87; Pulse 88; Resp 18; Temp 97.7(O); Pulse Ox 100% on R/A; Weight 63.5 kg; em Height 5 ft. 5 in. (165.10 cm); Pain 0/10; 08:15 Body Mass Index 23.30 (63.50 kg, 165.10 cm) em ED Course: 08:08 Patient arrived in ED. ds1 08:10 Riley Sebastian MD is Attending Physician. ps1 08:15 Familia Ray, KAREN is Primary Nurse. em 08:17 Triage completed. em 08:17 Arm band placed on. em 08:17 Patient has correct armband on for positive identification. Bed in low position. em 08:17 No provider procedures requiring assistance completed. Patient did not have IV access em during this emergency room visit. Administered Medications: No medications were administered Outcome: 08:16 Discharge ordered by . ps1 08:23 Discharged to home ambulatory. em 08:23 Condition: good 08:23 Discharge instructions given to patient, Instructed on discharge instructions, follow up and referral plans. medication usage, Demonstrated understanding of instructions, follow-up care, medications, wound care, Prescriptions given X 1. 08:23 Patient left the ED. em Signatures: Familia Ray, RN RN Marah Roche ds1 Riley Sebastian MD MD ps1
[2020-08-08 08:35] VITALS: BP 129/87; TEMP 97.7; O2SAT 100
== END 2020-08-08 08:23 | disposition home or self-care (01) ==
LOC: ER 08:05
DX: L02.03 Carbuncle of face (principal)
CPT/HCPCS: 99282

== ENCOUNTER 2020-09-10 05:09 | Emergency (ER) | payer SELFPAY ==
[2020-09-10] MEDS ORDERED: IPRATROPIUM BROM 0.5MG/2.5ML ONE ×2 (05:38→05:41)
[2020-09-10] MEDS ORDERED: ALBUTEROL 2.5 MG/3 ML NEB SOL ONE ×2 (05:38→05:41)
[2020-09-10] MEDS ORDERED: predniSONE 20 MG TAB ONE (05:53)
[2020-09-10] MEDS ORDERED: NA CHLORIDE 0.9% 1,000 ML ONE (05:53)
[2020-09-10] MEDS ORDERED: METHYLPREDNISOLONE 125 MG INJ ONE (05:53)
[2020-09-10] MEDS ORDERED: CEFTRIAXONE/SWI 1gm 1 GM/10 ML SYR ONE (05:54)
[2020-09-10] MEDS ORDERED: Magnesium Sulfate 2gm IVPB 2 G/50 ML BAG IV ONE (05:54)
[2020-09-10 06:15] LABS: Absolute Lymphocytes (CBC) 2.7 K/uL (0.7-4.9); Basophils % 0.7 % (0-1.3); Hematocrit 48.5 % (39.6-49.0); Lymphocytes % 32.4 % (15.3-44.8); MPV 8.9 fL (7.6-11.3); RBC Red Blood Cell Count 5.44 M/uL (4.33-5.43)
[2020-09-10 06:22] LABS: ALT/SGPT 60 U/L (12-78); AST/SGOT 35 U/L (15-37); Albumin 3.9 g/dL (3.4-5.0); Alkaline Phosphatase 88 U/L (45-117); BUN Blood Urea Nitrogen 14 mg/dL (7-18); Bicarbonate 26 mmol/L (21-32); Bilirubin Total 0.4 mg/dL (0.2-1.0); Glucose Level 101 mg/dL (74-106); Protein, Total 7.1 g/dL (6.4-8.2); Sodium Level 142 mmol/L (136-145)
[2020-09-10] MEDS ORDERED: AZITHROMYCIN 500 MG INJ IVPB ONE (06:31)
[2020-09-10] MEDS ORDERED: NA CHLORIDE 0.9% 250 ML ONE (06:31)
--- NOTE | 2020-09-10 06:44 | EDPHYS ---
Physician Documentation [facility] Name: Donell Rodriguez Age: 30 yrs Sex: Male : 1990 Arrival Date: 09/10/2020 Time: 05:11 Bed 2 Private MD: RODNEY Physician Nain Loaiza HPI: 09/10 05:39 This 30 yrs old Male presents to ER via Ambulatory with complaints of Asthma denisha Exacerbation. 05:39 The patient presents to the emergency department with wheezing, Current therapy: denisha albuterol nebs, that began without any particular precipitating event, OUT OF MEDS. Onset: The symptoms/episode began/occurred 2 day(s) ago. Modifying factors: The symptoms are alleviated by nothing, inhaler, steroids, prednisone. Associated signs and symptoms: Pertinent negatives: chest pain, choking, fever, headache, nausea, palpitations, rash, vomiting. Severity of symptoms: At their worst the symptoms were moderate in the emergency department the symptoms are unchanged. The patient has experienced similar episodes in the past, multiple times. Historical: - Allergies: 05:25 No Known Allergies; bb - Home Meds: 05:25 albuterol sulfate 90 mcg/actuation Inhl HFAA 2 puffs every 4 hours [Active]; bb - PMHx: 05:25 allergies; Anxiety; Asthma; bb - PSHx: 05:25 None; bb - Immunization history:: Adult Immunizations up to date. - Social history:: Smoking status: Patient denies any tobacco usage or history of. Patient uses alcohol, but reports only rare drinking. Patient/guardian denies using street drugs. ROS: 05:40 Constitutional: Negative for fever, chills, and weight loss, Eyes: Negative for injury, denisha pain, redness, and discharge, ENT: Negative for injury, pain, and discharge, Neck: Negative for injury, pain, and swelling, Cardiovascular: Negative for chest pain, palpitations, and edema, Abdomen/GI: Negative for abdominal pain, nausea, vomiting, diarrhea, and constipation, Back: Negative for injury and pain, : Negative for injury, bleeding, discharge, and swelling, MS/Extremity: Negative for injury and deformity, Skin: Negative for injury, rash, and discoloration, Neuro: Negative for headache, weakness, numbness, tingling, and seizure, Psych: Negative for depression, anxiety, suicide ideation, homicidal ideation, and hallucinations, Allergy/Immunology: Negative for hives, rash, and allergies, Endocrine: Negative for neck swelling, polydipsia, polyuria, polyphagia, and marked weight changes, Hematologic/Lymphatic: Negative for swollen nodes, abnormal bleeding, and unusual bruising. 05:40 Respiratory: Positive for cough, shortness of breath, wheezing, inspiratory, expiratory. Exam: 05:40 Constitutional: This is a well developed, well nourished patient who is awake, alert, denisha and in no acute distress. Head/Face: Normocephalic, atraumatic. Eyes: Pupils equal round and reactive to light, extra-ocular motions intact. Lids and lashes normal. Conjunctiva and sclera are non-icteric and not injected. Cornea within normal limits. Periorbital areas with no swelling, redness, or edema. ENT: Nares patent. No nasal discharge, no septal abnormalities noted. Tympanic membranes are normal and external auditory canals are clear. Oropharynx with no redness, swelling, or masses, exudates, or evidence of obstruction, uvula midline. Mucous membranes moist. Neck: Trachea midline, no thyromegaly or masses palpated, and no cervical lymphadenopathy. Supple, full range of motion without nuchal rigidity, or vertebral point tenderness. No Meningismus. Chest/axilla: Normal chest wall appearance and motion. Nontender with no deformity. No lesions are appreciated. Cardiovascular: Regular rate and rhythm with a normal S1 and S2. No gallops, murmurs, or rubs. Normal PMI, no JVD. No pulse deficits. Abdomen/GI: Soft, non-tender, with normal bowel sounds. No distension or tympany. No guarding or rebound. No evidence of tenderness throughout. Back: No spinal tenderness. No costovertebral tenderness. Full range of motion. Male : Normal genitalia with no discharge or lesions. Skin: Warm, dry with normal turgor. Normal color with no rashes, no lesions, and no evidence of cellulitis. MS/ Extremity: Pulses equal, no cyanosis. Neurovascular intact. Full, normal range of motion. Neuro: Awake and alert, GCS 15, oriented to person, place, time, and situation. Cranial nerves II-XII grossly intact. Motor strength 5/5 in all extremities. Sensory grossly intact. Cerebellar exam normal. Normal gait. Psych: Awake, alert, with orientation to person, place and time. Behavior, mood, and affect are within normal limits. 05:40 Respiratory: mild respiratory distress is noted, Respirations: labored breathing, that is mild, Breath sounds: bronchial sounds, rhonchi, wheezing: inspiratory expiratory 05:48 Musculoskeletal/extremity: DVT Exam: No signs of deep vein thrombosis. no pain, no denisha swelling, no tenderness, negative Homans' sign noted on exam, no appreciated bluish discoloration, no erythema, no increased warmth. Vital Signs: 05:22 BP 143 / 101; Pulse 93; Resp 16 S; Temp 97.6(O); Pulse Ox 96% on R/A; Weight 63.5 kg bb (R); Height 5 ft. 5 in. (165.10 cm) (R); Pain 0/10; 06:20 BP 127 / 81; Pulse 67; Resp 16; Pulse Ox 100% on R/A; rv 06:51 BP 133 / 88; Pulse 98; Resp 18; Pulse Ox 100% on Nebulizer Mask; rv 05:22 Body Mass Index 23.30 (63.50 kg, 165.10 cm) bb MDM: 05:19 Patient medically screened. denisha 05:40 Differential diagnosis: acute asthma, reactive airway, URI. Antibiotic administration: [facility] Rocephin and Zithromax given. Differential Diagnosis: Bronchitis Influenza Upper Respiratory Infection Sinusitis Pharyngitis Otitis Media Asthma Exacerbation Pneumonia. Data reviewed: vital signs, nurses notes, lab test result(s), CBC, electrolytes, Flu: hepatic panel, radiologic studies, plain films. Data interpreted: stars specialist: rate is 93 beats/min, rhythm is regular, Pulse oximetry: on room air is 96 %. Test interpretation: by ED physician or midlevel provider: plain radiologic studies. Counseling: I had a detailed discussion with the patient and/or guardian regarding: the historical points, exam findings, and any diagnostic results supporting the discharge/admit diagnosis, lab results, radiology results, the need for outpatient follow up, for definitive care, a family practitioner, a office rn. 09/10 05:36 Order name: CBC with Diff; Complete Time: 06:36 [facility] 09/10 05:36 Order name: Comprehensive Metabolic Panel; Complete Time: 06:36 [facility] 09/10 05:36 Order name: Chest Single View XRAY [facility] 09/10 05:36 Order name: Blood Culture Adult (2) [facility] Administered Medications: 05:34 Drug: Albuterol - atroVENT (3:1) (2.5 mg - 0.5 mg) 3 ml Route: Nebulizer; rv 06:01 Follow up: Response: No adverse reaction; Marked relief of symptoms rv 05:59 Drug: Magnesium Sulfate 2 grams Route: IVPB; Infused Over: 2 hrs; Site: right rv antecubital; 06:26 Follow up: IV Status: Completed infusion; IV Intake: 50ml rv 06:00 Drug: NS 0.9% 1000 ml Route: IV; Rate: 1 bolus; Site: right antecubital; rv 07:12 Follow up: Response: No adverse reaction; IV Status: Completed infusion; IV Intake: rr5 1000ml 06:00 Drug: SOLU-Medrol 125 mg Route: IVP; Site: right antecubital; rv 06:26 Follow up: Response: No adverse reaction rv 06:00 Drug: predniSONE 60 mg Route: PO; rv 06:26 Follow up: Response: No adverse reaction rv 06:00 Drug: Rocephin 1 grams Route: IV; Rate: per protocol; Site: right antecubital; rv 06:26 Follow up: Response: No adverse reaction; IV Status: Completed infusion rv 06:25 Drug: Zithromax 500 mg Route: IVPB; Infused Over: 1 hrs; Site: right antecubital; rv 07:18 Follow up: IV Status: Completed infusion; IV Intake: 250ml rv 06:47 Drug: Xopenex 2.5 mg Route: Inhalation; rv 07:11 Follow up: Response: No adverse reaction rr5 Disposition: 09/10/20 06:43 Discharged to Home. Impression: Asthma, Acute upper respiratory infection, unspecified, Dyspnea. - Condition is Stable. - Discharge Instructions: Asthma, Adult, Shortness of Breath, Upper Respiratory Infection, Adult, Cool Mist Vaporizer, Shortness of Breath, Sbix-gq-Eatm, Asthma, Adult, Nwdq-fd-Chde, Cough, Adult, Acnt-ux-Phdo, Cough, Adult. - Prescriptions for Prednisone 20 mg Oral Tablet - take 3 tablet by ORAL route once daily for 5 days; 15 tablet. Albuterol Sulfate 2.5 mg /3 mL (0.083 %) Inhalation Solution for Nebulization - inhale 1 unit by NEBULIZATION route every 8 hours As needed; 1 box. Albuterol Sulfate 90 mcg/actuation - inhale 1-2 puff by INHALATION route every 4-6 hours; 1 Inhaler. Zithromax 500 mg Oral Tablet - take 1 tablet by ORAL route once daily for 4 days; 4 tablet. - Medication Reconciliation Form, Thank You Letter, Antibiotic Education, Prescription Opioid Use form. - Follow up: Private Physician; When: 2 - 3 days; Reason: Recheck today's complaints, Continuance of care, Re-evaluation by your physician. Follow up: Westley Jaeger; When: 2 - 3 days; Reason: Recheck today's complaints, Continuance of care, Re-evaluation by your physician. - Problem is new. - Symptoms have improved. Signatures: Dispatcher [employer] EDMS Nain Loaiza MD MD cha Ballard, Brenda, RN RN bb Bennie Salazar RN RN Ruddy Arthur RN RN Saad Eddy RN rr5 Corrections: (The following items were deleted from the chart) 07:30 06:43 09/10/2020 06:43 Discharged to Home. Impression: Asthma; Acute upper respiratory bp infection, unspecified; Dyspnea. Condition is Stable. Discharge Instructions: Asthma, Adult, Shortness of Breath, Upper Respiratory Infection, Adult, Cool Mist Vaporizer, Shortness of Breath, Yksb-fv-Oqlk, Asthma, Adult, Dlbz-nc-Jlpf, Cough, Adult, Svdt-lj-Kcly, Cough, Adult. Prescriptions for Prednisone 20 mg Oral Tablet - take 3 tablet by ORAL route once daily for 5 days; 15 tablet, Albuterol Sulfate 2.5 mg /3 mL (0.083 %) Inhalation Solution for Nebulization - inhale 1 unit by NEBULIZATION route every 8 hours As needed; 1 box, Albuterol Sulfate 90 mcg/actuation - inhale 1-2 puff by INHALATION route every 4-6 hours; 1 Inhaler, Zithromax 500 mg Oral Tablet - take 1 tablet by ORAL route once daily for 4 days; 4 tablet. and Forms are Medication Reconciliation Form, Thank You Letter, Antibiotic Education, Prescription Opioid Use. Follow up: Private Physician; When: 2 - 3 days; Reason: Recheck today's complaints, Continuance of care, Re-evaluation by your physician. Follow up: Westley Jaeger; When: 2 - 3 days; Reason: Recheck today's complaints, Continuance of care, Re-evaluation by your physician. Problem is new. Symptoms have improved. denisha
--- NOTE | 2020-09-10 06:44 | ER ---
Nurse's Notes [facility] Name: Donell Rodriguez Age: 30 yrs Sex: Male : 1990 Arrival Date: 09/10/2020 Time: 05:11 Bed 2 Private MD: Diagnosis: Asthma;Acute upper respiratory infection, unspecified;Dyspnea Presentation: 09/10 05:21 Chief complaint: Patient states: he has asthma and ran out of his meds last night he bb started having difficulty breathing and it was worse when he woke up this morning. 05:21 Method Of Arrival: Ambulatory bb 05:22 Coronavirus screen: At this time, the client does not indicate any symptoms associated bb with coronavirus-19. Ebola Screen: No symptoms or risks identified at this time. Initial Sepsis Screen: Does the patient meet any 2 criteria? No. Patient's initial sepsis screen is negative. Does the patient have a suspected source of infection? No. Patient's initial sepsis screen is negative. Risk Assessment: Do you want to hurt yourself or someone else? Patient reports no desire to harm self or others. Onset of symptoms was September 09, 2020. 05:22 Acuity: RICHARD 3 bb Historical: - Allergies: 05:25 No Known Allergies; bb - Home Meds: 05:25 albuterol sulfate 90 mcg/actuation Inhl HFAA 2 puffs every 4 hours [Active]; bb - PMHx: 05:25 allergies; Anxiety; Asthma; bb - PSHx: 05:25 None; bb - Immunization history:: Adult Immunizations up to date. - Social history:: Smoking status: Patient denies any tobacco usage or history of. Patient uses alcohol, but reports only rare drinking. Patient/guardian denies using street drugs. Screenin:02 Abuse screen: Denies threats or abuse. Denies injuries from another. Nutritional rv screening: No deficits noted. Tuberculosis screening: No symptoms or risk factors identified. Fall Risk None identified. Assessment: 05:30 General: Appears uncomfortable, Behavior is calm, cooperative. rv 05:30 Pain: Denies pain. Neuro: Level of Consciousness is awake, alert, obeys commands, rv Oriented to person, place, time, situation. Cardiovascular: Patient's skin is warm and dry. Respiratory: Airway is patent Respiratory effort is labored, Respiratory pattern is tachypnea Breath sounds with wheezes bilaterally. Derm: Skin is intact. 06:30 Reassessment: Patient appears in no apparent distress at this time. Patient is alert, rr5 oriented x 3, equal unlabored respirations, skin warm/dry/pink. 07:10 Reassessment: Patient appears in no apparent distress at this time. Patient is alert, rr5 oriented x 3, equal unlabored respirations, skin warm/dry/pink. discharge instruction given and explained without complaint made. azithromycin drip ongoing after the drip for discharge Patient states feeling better. Patient states symptoms have improved. 07:29 Reassessment: ABX COMPLETED. PT D/C HOME AMBULATORY. bp Vital Signs: 05:22 BP 143 / 101; Pulse 93; Resp 16 S; Temp 97.6(O); Pulse Ox 96% on R/A; Weight 63.5 kg bb (R); Height 5 ft. 5 in. (165.10 cm) (R); Pain 0/10; 06:20 BP 127 / 81; Pulse 67; Resp 16; Pulse Ox 100% on R/A; rv 06:51 BP 133 / 88; Pulse 98; Resp 18; Pulse Ox 100% on Nebulizer Mask; rv 05:22 Body Mass Index 23.30 (63.50 kg, 165.10 cm) bb ED Course: 05:11 Patient arrived in ED. bp1 05:19 Nain Loaiza MD is Attending Physician. denisha 05:20 Ruddy Muniz, KAREN is Primary Nurse. rv 05:24 Triage completed. bb 05:25 Arm band placed on Patient placed in an exam room, on a stretcher, on threat monitoring analyst, bb on pulse oximetry. 05:45 Inserted saline lock: 20 gauge in right antecubital area, using aseptic technique. rv Blood collected. 05:45 Initial lab(s) drawn, by me, sent to lab. First set of blood cultures drawn by me. rv 06:02 Patient has correct armband on for positive identification. Pulse ox on. NIBP on. rv 06:05 Second set of blood cultures drawn by me. rv 06:06 Chest Single View XRAY In Process Unspecified. EDMS 06:21 No provider procedures requiring assistance completed. rv 06:43 Westley Jaeger MD is Referral Physician. denisha 07:18 IV discontinued, intact, bleeding controlled, No redness/swelling at site. Pressure rv dressing applied. Administered Medications: 05:34 Drug: Albuterol - atroVENT (3:1) (2.5 mg - 0.5 mg) 3 ml Route: Nebulizer; rv 06:01 Follow up: Response: No adverse reaction; Marked relief of symptoms rv 05:59 Drug: Magnesium Sulfate 2 grams Route: IVPB; Infused Over: 2 hrs; Site: right rv antecubital; 06:26 Follow up: IV Status: Completed infusion; IV Intake: 50ml rv 06:00 Drug: NS 0.9% 1000 ml Route: IV; Rate: 1 bolus; Site: right antecubital; rv 07:12 Follow up: Response: No adverse reaction; IV Status: Completed infusion; IV Intake: rr5 1000ml 06:00 Drug: SOLU-Medrol 125 mg Route: IVP; Site: right antecubital; rv 06:26 Follow up: Response: No adverse reaction rv 06:00 Drug: predniSONE 60 mg Route: PO; rv 06:26 Follow up: Response: No adverse reaction rv 06:00 Drug: Rocephin 1 grams Route: IV; Rate: per protocol; Site: right antecubital; rv 06:26 Follow up: Response: No adverse reaction; IV Status: Completed infusion rv 06:25 Drug: Zithromax 500 mg Route: IVPB; Infused Over: 1 hrs; Site: right antecubital; rv 07:18 Follow up: IV Status: Completed infusion; IV Intake: 250ml rv 06:47 Drug: Xopenex 2.5 mg Route: Inhalation; rv 07:11 Follow up: Response: No adverse reaction rr5 Intake: 06:26 IV: 50ml; Total: 50ml. rv 07:12 IV: 1000ml; Total: 1050ml. rr5 07:18 IV: 250ml; Total: 1300ml. rv Outcome: 06:43 Discharge ordered by . denisha 07:18 Discharged to home ambulatory. rv 07:18 Condition: improved 07:18 Discharge instructions given to patient, Instructed on discharge instructions, follow up and referral plans. medication usage, Demonstrated understanding of instructions, follow-up care, medications, Prescriptions given X 4. 07:30 Patient left the ED. bp Signatures: Dispatcher [employer] EDGA Nain Loaiza MD MD cha Ballard, Brenda, RN RN bb Bennie Salazar, RN RN bp Ruddy Muniz, RN RN rv Saad Machado, RN RN rr5 Cindy Mena bp1
[2020-09-10] MEDS ORDERED: LEVALBUTEROL 1.25 MG/3 ML NEB ONE (06:58)
[2020-09-10 07:41] VITALS: TEMP 97.6
[2020-09-10 07:42] VITALS: O2SAT 100
[2020-09-10 07:44] VITALS: BP 133/88
--- NOTE | 2020-09-10 08:43 | RAD REPORT ---
EXAM DESCRIPTION: RAD - Chest Single View - 09/10/2020 6:06 am CLINICAL HISTORY: Cough;Dyspnea COMPARISON: June 20, 2020 TECHNIQUE: AP portable chest image was obtained 09/10/2020 6:06 am . FINDINGS: Lungs are clear. Heart and vasculature are normal. No measurable pleural effusion and no p neumothorax. No acute bony abnormality seen. No acute aortic findings suspected. IMPRESSION: No acute cardiopulmonary process. No significant change from comparison study.
== END 2020-09-10 07:30 | disposition home or self-care (01) ==
LOC: ER 05:09
DX: J45.909 Unspecified asthma, uncomplicated (principal); J06.9 Acute upper respiratory infection, unspecified
CPT/HCPCS: 36415; 71045; 80053; 85025; 87040; 96365; 96367; 96375; 99284; J0456; J0696; J2930; J3475; J7030; J7050; J7512

== ENCOUNTER 2020-10-31 | Emergency (ER) | payer SELFPAY ==
--- NOTE | 2020-11-01 00:17 | ER ---
Nurse's Notes [facility] Name: Donell Rodriguez Age: 30 yrs Sex: Male : 1990 Arrival Date: 10/31/2020 Time: 22:48 Bed Waiting Private MD: Diagnosis: Acne, unspecified Presentation: 10/31 23:27 Chief complaint: Patient states: Small abscess to left side of lip that began about 2 lp1 days ago; states pain to site. Coronavirus screen: Client denies travel out of the [place] in the last 14 days. At this time, the client does not indicate any symptoms associated with coronavirus-19. Ebola Screen: No symptoms or risks identified at this time. Initial Sepsis Screen: Does the patient meet any 2 criteria? No. Patient's initial sepsis screen is negative. Does the patient have a suspected source of infection? No. Patient's initial sepsis screen is negative. Risk Assessment: Do you want to hurt yourself or someone else? Patient reports no desire to harm self or others. Onset of symptoms was October 31, 2020. 23:27 Method Of Arrival: Ambulatory lp1 23:27 Acuity: RICHARD 5 lp1 Historical: - Allergies: 23:29 No Known Allergies; lp1 - Home Meds: 23:29 albuterol sulfate 90 mcg/actuation Inhl HFAA 2 puffs every 4 hours [Active]; lp1 - PMHx: 23:29 allergies; Anxiety; Asthma; lp1 - PSHx: 23:29 None; lp1 - Immunization history:: Adult Immunizations up to date. - Social history:: Smoking status: Patient denies any tobacco usage or history of. Screenin/04 00:19 Abuse screen: Denies threats or abuse. Denies injuries from another. Nutritional lp1 screening: No deficits noted. Tuberculosis screening: No symptoms or risk factors identified. Fall Risk None identified. Assessment: 00:17 Reassessment: Dr. Thompson assessing patient. General: Appears in no apparent distress. lp1 Behavior is calm, cooperative, appropriate for age. Pain: Denies pain. Neuro: No deficits noted. Cardiovascular: No deficits noted. Respiratory: No deficits noted. GI: No signs and/or symptoms were reported involving the gastrointestinal system. : No signs and/or symptoms were reported regarding the genitourinary system. EENT: No signs and/or symptoms were reported regarding the EENT system. Derm: Abscess is Small abscess to left side of lip. Musculoskeletal: No deficits noted. Vital Signs: 10/31 23:27 BP 126 / 82; Pulse 62; Resp 16; Temp 98.1(O); Pulse Ox 100% on R/A; Weight 61.23 kg lp1 (R); Height 5 ft. 5 in. (165.10 cm); 23:27 Body Mass Index 22.46 (61.23 kg, 165.10 cm) lp1 ED Course: 22:48 Patient arrived in ED. es 23:28 Triage completed. lp1 23:29 Arm band placed on right wrist. lp1 23:57 Maximo Thompson MD is Attending Physician. tw4 11/01 00:17 Jazmine Escalona, RN is Primary Nurse. lp1 00:19 Patient has correct armband on for positive identification. lp1 00:19 No provider procedures requiring assistance completed. Patient did not have IV access lp1 during this emergency room visit. Administered Medications: No medications were administered Outcome: 00:16 Discharge ordered by . tw4 00:19 Medical screen evaluation completed per provider. Patient declined treatment. lp1 00:19 Condition: good 00:20 Patient left the ED. lp1 Signatures: Radha Clarke Laura, RN RN lp1 Maximo Thompson MD MD tw4
--- NOTE | 2020-11-01 00:17 | EDPHYS ---
Physician Documentation [facility] Name: Donell Rodriguez Age: 30 yrs Sex: Male : 1990 Arrival Date: 10/31/2020 Time: 22:48 Bed Waiting Private MD: ED Physician Maximo Thompson HPI: 11/01 06:42 This 30 yrs old Male presents to ER via Ambulatory with complaints of tw4 infection in face. 06:42 The rash is located on the left corner of mouth. The rash can be described as papular. tw4 Onset: The symptoms/episode began/occurred today. Severity of symptoms: At their worst the symptoms were moderate in the emergency department the symptoms are unchanged. The patient has not experienced similar symptoms in the past. Historical: - Allergies: 10/31 23:29 No Known Allergies; lp1 - Home Meds: 23:29 albuterol sulfate 90 mcg/actuation Inhl HFAA 2 puffs every 4 hours [Active]; lp1 - PMHx: 23:29 allergies; Anxiety; Asthma; lp1 - PSHx: 23:29 None; lp1 - Immunization history:: Adult Immunizations up to date. - Social history:: Smoking status: Patient denies any tobacco usage or history of. ROS: 11/01 06:42 Constitutional: Negative for fever, chills, and weight loss, Eyes: Negative for injury, tw4 pain, redness, and discharge, Cardiovascular: Negative for chest pain, palpitations, and edema, Respiratory: Negative for shortness of breath, cough, wheezing, and pleuritic chest pain, Abdomen/GI: Negative for abdominal pain, nausea, vomiting, diarrhea, and constipation. Skin: Positive for Vital Signs: 10/31 23:27 BP 126 / 82; Pulse 62; Resp 16; Temp 98.1(O); Pulse Ox 100% on R/A; Weight 61.23 kg lp1 (R); Height 5 ft. 5 in. (165.10 cm); 23:27 Body Mass Index 22.46 (61.23 kg, 165.10 cm) lp1 MDM: 11/01 00:16 Patient medically screened. tw4 00:16 Data reviewed: vital signs, nurses notes. Counseling: I had a detailed discussion with tw4 the patient and/or guardian regarding: the historical points, exam findings, and any diagnostic results supporting the discharge/admit diagnosis. Medical screen evaluation completed. EMTALA emergency medical condition absent. Special discussion: I discussed with the patient/guardian in detail that at this point there is no indication for admission to the hospital. It is understood, however, that if the symptoms persist or worsen the patient needs to return immediately for re-evaluation. 06:45 Differential diagnosis: impetigo, allergic reaction. tw4 Administered Medications: No medications were administered Disposition: 11/01/20 00:16 Discharged to Home. Impression: Acne, unspecified. - Condition is Stable. - Discharge Instructions: Rash. - Medication Reconciliation Form, Thank You Letter, Antibiotic Education, Prescription Opioid Use form. - Follow up: Private Physician; When: Upon discharge from the Emergency Department; Reason: Recheck today's complaints, Continuance of care, Re-evaluation by your physician. - Problem is new. - Symptoms are unchanged. Signatures: Jazmine Escalona RN RN lp1 Maximo Thompson MD MD tw4 Corrections: (The following items were deleted from the chart) 00:20 00:16 11/01/2020 00:16 Discharged to Home. Impression: Acne, unspecified. Condition is lp1 Stable. Forms are Medication Reconciliation Form, Thank You Letter, Antibiotic Education, Prescription Opioid Use. Follow up: Private Physician; When: Upon discharge from the Emergency Department; Reason: Recheck today's complaints, Continuance of care, Re-evaluation by your physician. Problem is new. Symptoms are unchanged. tw4
== END 2020-11-01 00:20 | disposition home or self-care (01) ==
CPT/HCPCS: 99281

== ENCOUNTER 2020-12-14 04:56 | Emergency (ER) | payer SELFPAY ==
[2020-12-14] MEDS ORDERED: IPRATROPIUM BROM 0.5MG/2.5ML ONE (05:47)
[2020-12-14] MEDS ORDERED: predniSONE 20 MG TAB ONE (05:47)
[2020-12-14] MEDS ORDERED: ALBUTEROL 2.5 MG/3 ML NEB SOL ONE ×2 (05:48→05:55)
--- NOTE | 2020-12-14 06:25 | ER ---
Nurse's Notes [facility] Name: Donell Rodriguez Age: 30 yrs Sex: Male : 1990 Arrival Date: 12/14/2020 Time: 04:58 Bed 14 Private MD: Diagnosis: Moderate persistent asthma with (acute) exacerbation Presentation: 12/14 05:18 Chief complaint: Patient states: My asthma has been acting up the last few days, sg reports having worsening wheezing and shortness of breath this morning. pt also reports having had an infection on the left sinus and ear, friend gave amoxicillin to take, pt reports those symptoms have improved. Coronavirus screen: shortness of breath, Client presents with at least one sign or symptom that may indicate coronavirus-19. Standard/surgical mask placed on the client. Provider contacted for isolation considerations. At this time, the client does not indicate any symptoms associated with coronavirus-19. Ebola Screen: Patient negative for fever greater than or equal to 101.5 degrees Fahrenheit, and additional compatible Ebola Virus Disease symptoms Patient denies exposure to infectious person. Patient denies travel to an Ebola-affected area in the 21 days before illness onset. No symptoms or risks identified at this time. Initial Sepsis Screen: Does the patient meet any 2 criteria? HR > 90 bpm. Does the patient have a suspected source of infection? No. Patient's initial sepsis screen is negative. Risk Assessment: Do you want to hurt yourself or someone else? Patient reports no desire to harm self or others. Onset of symptoms was December 14, 2020. Care prior to arrival: None. Transition of care: patient was not received from another setting of care. 05:18 Acuity: RICHARD 3 sg 05:18 Method Of Arrival: Ambulatory sg Historical: - Allergies: 05:20 No Known Allergies; sg - Home Meds: 05:20 albuterol sulfate 90 mcg/actuation Inhl HFAA 2 puffs every 4 hours [Active]; sg - PMHx: 05:20 allergies; Anxiety; Asthma; sg - PSHx: 05:20 None; sg - Immunization history:: Adult Immunizations up to date. - Social history:: Smoking status: Patient denies any tobacco usage or history of. Screenin:57 Abuse screen: Denies threats or abuse. Nutritional screening: No deficits noted. ll2 Tuberculosis screening: No symptoms or risk factors identified. Fall Risk None identified. Assessment: 05:30 General: Appears in no apparent distress. Behavior is calm, cooperative, appropriate ll2 for age. Pain: Complains of pain in breathing difficulty. Neuro: Level of Consciousness is awake, alert, obeys commands, Oriented to person, place, time, situation. Cardiovascular: Patient's skin is warm and dry. Respiratory: Breath sounds with wheezes bilaterally. Derm: Skin is intact, is healthy with good turgor, Skin is pink, warm \T\ dry. Musculoskeletal: Circulation, motion, and sensation intact. Range of motion: intact in all extremities. 06:25 Reassessment: Patient and/or family updated on plan of care and expected duration. Pain ll2 level reassessed. Patient is alert, oriented x 3, equal unlabored respirations, skin warm/dry/pink. Vital Signs: 05:18 Pulse 92; Resp 20; Pulse Ox 96% on R/A; sg 06:07 BP 126 / 80; Pulse 80; Resp 20; Pulse Ox 99% on Nebulizer Mask; ll2 ED Course: 04:58 Patient arrived in ED. ag3 05:14 Oren Avila MD is Attending Physician. kdr 05:20 Triage completed. sg 05:20 Arm band placed on. sg 05:54 Amanda Swan RN is Primary Nurse. ll2 05:57 Patient has correct armband on for positive identification. Bed in low position. Call ll2 light in reach. Side rails up X 1. Pulse ox on. NIBP on. 06:25 No provider procedures requiring assistance completed. Patient did not have IV access ll2 during this emergency room visit. Administered Medications: 05:30 Drug: Albuterol - atroVENT (3:1) (2.5 mg - 0.5 mg) 3 ml Route: Nebulizer; ll2 05:30 Drug: predniSONE 60 mg Route: PO; ll2 Outcome: 06:24 Discharge ordered by . kdr 06:25 Discharged to home ambulatory. ll2 06:25 Condition: stable 06:25 Discharge instructions given to patient, Instructed on discharge instructions, follow up and referral plans. medication usage, Demonstrated understanding of instructions, follow-up care, medications, Prescriptions given X 2. 06:32 Patient left the ED. ll2 Signatures: Lakhwinder Redman RN RN sg Oren Avila MD MD kdr Perla Tinsley ag3 Amanda Swan RN RN ll2
--- NOTE | 2020-12-14 06:25 | EDPHYS ---
Physician Documentation [facility] Name: Donell Rodriguez Age: 30 yrs Sex: Male : 1990 Arrival Date: 12/14/2020 Time: 04:58 Bed 14 Private MD: ED Physician Oren Avila HPI: 12/14 05:28 This 30 yrs old Male presents to ER via Ambulatory with complaints of Asthma kdr Exacerbation. 05:28 The patient presents to the emergency department with wheezing, Current therapy: None, kdr that began without any particular precipitating event, the patient was reported to have audible wheezing, chest tightness, trouble breathing, Pre-hospital care: none. Onset: The symptoms/episode began/occurred gradually, today. Modifying factors: The symptoms are alleviated by nothing, the symptoms are aggravated by exertion, smoke, talking. Associated signs and symptoms: Pertinent positives: Pertinent negatives: chest pain, choking, fever, headache, nausea, palpitations, rash, vomiting. Severity of symptoms: At their worst the symptoms were moderate in the emergency department the symptoms are unchanged. The patient has experienced similar episodes in the past, a few times. The patient has not recently seen a physician. Historical: - Allergies: 05:20 No Known Allergies; sg - Home Meds: 05:20 albuterol sulfate 90 mcg/actuation Inhl HFAA 2 puffs every 4 hours [Active]; sg - PMHx: 05:20 allergies; Anxiety; Asthma; sg - PSHx: 05:20 None; sg - Immunization history:: Adult Immunizations up to date. - Social history:: Smoking status: Patient denies any tobacco usage or history of. ROS: 05:28 Constitutional: Negative for fever, chills, and weight loss, Eyes: Negative for injury, kdr pain, redness, and discharge, ENT: Negative for injury, pain, and discharge, Neck: Negative for injury, pain, and swelling, Cardiovascular: Negative for chest pain, palpitations, and edema, Abdomen/GI: Negative for abdominal pain, nausea, vomiting, diarrhea, and constipation, Back: Negative for injury and pain, : Negative for injury, bleeding, discharge, and swelling, MS/Extremity: Negative for injury and deformity, Skin: Negative for injury, rash, and discoloration, Neuro: Negative for headache, weakness, numbness, tingling, and seizure activity. Psych: Negative for depression, anxiety, suicide ideation, homicidal ideation, and hallucinations, Allergy/Immunology: Negative for hives, rash, and allergies, Endocrine: Negative for neck swelling, polydipsia, polyuria, polyphagia, and marked weight changes, Hematologic/Lymphatic: Negative for swollen nodes, abnormal bleeding, and unusual bruising. 05:28 Respiratory: Positive for cough, with no reported sputum, dyspnea on exertion, shortness of breath, wheezing. Exam: 05:28 Constitutional: This is a well developed, well nourished patient who is awake, alert, kdr and in no acute distress. Head/Face: Normocephalic, atraumatic. Eyes: Pupils equal round and reactive to light, extra-ocular motions intact. Lids and lashes normal. Conjunctiva and sclera are non-icteric and not injected. Cornea within normal limits. Periorbital areas with no swelling, redness, or edema. Neck: Trachea midline, no thyromegaly or masses palpated, and no cervical lymphadenopathy. Supple, full range of motion without nuchal rigidity, or vertebral point tenderness. No Meningismus. Chest/axilla: Normal chest wall appearance and motion. Nontender with no deformity. No lesions are appreciated. Cardiovascular: Regular rate and rhythm with a normal S1 and S2. No gallops, murmurs, or rubs. Normal PMI, no JVD. No pulse deficits. Abdomen/GI: Soft, non-tender, with normal bowel sounds. No distension or tympany. No guarding or rebound. No evidence of tenderness throughout. Back: No spinal tenderness. No costovertebral tenderness. Full range of motion. Skin: Warm, dry with normal turgor. Normal color with no rashes, no lesions, and no evidence of cellulitis. MS/ Extremity: Pulses equal, no cyanosis. Neurovascular intact. Full, normal range of motion. Neuro: Awake and alert, GCS 15, oriented to person, place, time, and situation. Cranial nerves II-XII grossly intact. Motor strength 5/5 in all extremities. Sensory grossly intact. Cerebellar exam normal. Normal gait. Psych: Awake, alert, with orientation to person, place and time. Behavior, mood, and affect are within normal limits. 05:28 Respiratory: mild respiratory distress is noted, Respirations: labored breathing, that is mild, prolonged exhalation, Breath sounds: decreased breath sounds, that are moderate, are scattered, stridor, is not appreciated. Vital Signs: 05:18 Pulse 92; Resp 20; Pulse Ox 96% on R/A; sg 06:07 BP 126 / 80; Pulse 80; Resp 20; Pulse Ox 99% on Nebulizer Mask; ll2 MDM: 06:24 Patient medically screened. kdr 06:26 Data reviewed: vital signs, nurses notes. Counseling: I had a detailed discussion with kdr the patient and/or guardian regarding: the historical points, exam findings, and any diagnostic results supporting the discharge/admit diagnosis. Special discussion: I discussed with the patient/guardian in detail that at this point there is no indication for admission to the hospital. It is understood, however, that if the symptoms persist or worsen the patient needs to return immediately for re-evaluation. ED course: The patient was moving air much better at time of discharge. Administered Medications: 05:30 Drug: Albuterol - atroVENT (3:1) (2.5 mg - 0.5 mg) 3 ml Route: Nebulizer; ll2 05:30 Drug: predniSONE 60 mg Route: PO; ll2 Disposition: 12/14/20 06:24 Discharged to Home. Impression: Moderate persistent asthma with (acute) exacerbation. - Condition is Stable. - Discharge Instructions: Asthma, Adult. - Prescriptions for Medrol (Rohan) 4 mg Oral Tablets, Dose Pack - take 1 tablet by ORAL route as directed - follow package instructions; 1 packet. Albuterol Sulfate 90 mcg/actuation Inhalation - inhale 1-2 puff by INHALATION route every 4-6 hours; 2 Inhaler. - Medication Reconciliation Form, Thank You Letter form. - Follow up: Private Physician; When: 2 - 3 days; Reason: If symptoms return, Further diagnostic work-up, Recheck today's complaints, Continuance of care, Re-evaluation by your physician. - Problem is an acute exacerbation. - Symptoms have improved. Signatures: Lakhwinder Redman RN RN Oren Avila MD MD [facility] Amanda Swan RN RN ll2 Corrections: (The following items were deleted from the chart) 06:32 06:24 12/14/2020 06:24 Discharged to Home. Impression: Moderate persistent asthma with ll2 (acute) exacerbation. Condition is Stable. Forms are Medication Reconciliation Form, Thank You Letter, Antibiotic Education, Prescription Opioid Use. Follow up: Private Physician; When: 2 - 3 days; Reason: If symptoms return, Further diagnostic work-up, Recheck today's complaints, Continuance of care, Re-evaluation by your physician. Problem is an acute exacerbation. Symptoms have improved. kdr
[2020-12-14 06:37] VITALS: BP 126/80; O2SAT 99
== END 2020-12-14 06:32 | disposition home or self-care (01) ==
LOC: ER 04:56
DX: J45.41 Moderate persistent asthma with (acute) exacerbation (principal)
CPT/HCPCS: 99284; J7512

== ENCOUNTER 2021-01-02 17:23 | Emergency (ER) | payer SELFPAY ==
[2021-01-02] MEDS ORDERED: LIDOCAINE 1% MPF 5 ML VIAL ONE ×2 (18:47→19:19)
--- NOTE | 2021-01-02 19:17 | EDPHYS ---
Physician Documentation [facility] Name: Donell Rodriguez Age: 30 yrs Sex: Male : 1990 Arrival Date: 01/02/2021 Time: 17:24 Bed 25 Private MD: ED Physician Nain Loaiza HPI: 01/02 19:13 This 30 yrs old Male presents to ER via Ambulatory with complaints of pm1 Laceration To Hand - wrist. 19:13 The patient has a laceration related to: accidentally cut his wrist on his fence when pm1 his dog jumped to great him occurred at home, and there are no complicating factors. The laceration(s) is(are) located on the right wrist. Onset: The symptoms/episode began/occurred just prior to arrival. Associated signs and symptoms: The patient has no apparent associated signs or symptoms, Pertinent negatives: deformity, heavy bleeding, numbness distal to injury, suspected foreign body. The patient has not experienced similar symptoms in the past. The patient has not recently seen a physician. Historical: - Allergies: 18:11 No Known Allergies; ca1 - Home Meds: 18:11 albuterol sulfate 90 mcg/actuation Inhl HFAA 2 puffs every 4 hours [Active]; ca1 - PMHx: 18:11 allergies; Anxiety; Asthma; ca1 - PSHx: 18:11 None; ca1 - Immunization history:: Last tetanus immunization: unknown, Flu vaccine is up to date. - Social history:: Smoking status: Patient denies any tobacco usage or history of. ROS: 19:13 Constitutional: Negative for fever, chills, and weight loss, Cardiovascular: Negative pm1 for chest pain, palpitations, and edema, Respiratory: Negative for shortness of breath, cough, wheezing, and pleuritic chest pain. 19:13 Neuro: Negative for headache, weakness, numbness, tingling, and seizure. 19:13 MS/extremity: Positive for laceration, of the right wrist. 19:13 Skin: Positive for laceration(s), of the right wrist. Exam: 19:13 Constitutional: This is a well developed, well nourished patient who is awake, alert, pm1 and in no acute distress. Head/Face: Normocephalic, atraumatic. 19:13 Cardiovascular: Exam negative for acute changes, Rate: normal, Rhythm: regular, Pulses: no pulse deficits are appreciated. 19:13 Respiratory: Exam negative for acute changes, respiratory distress, shortness of breath. 19:13 Skin: injury, laceration(s), the wound is approximately 2 cm(s), of the right wrist, that can be described as clean, no foreign body, linear, without bleeding. Vital Signs: 18:08 BP 138 / 84; Pulse 66; Resp 18 S; Temp 97.1(TE); Pulse Ox 99% on R/A; Weight 63.5 kg ca1 (R); Height 5 ft. 5 in. (165.10 cm) (R); Pain /10; 18:08 Body Mass Index 23.30 (63.50 kg, 165.10 cm) ca1 Laceration: 19:13 Wound Repair of 2.5cm ( 1.0in ) subcutaneous laceration to right wrist. Linear shaped.. pm1 Distal neuro/vascular/tendon intact. Anesthesia: Local anesthetic administered with 3 mls of 1% lidocaine. Wound prep: Extensive cleansing with hibiclenz by me, Wound irrigation with saline by me, Wound explored extensively, Copious irrigation. Skin closed with 5 1-0 Prolene using simple sutures and sterile technique. Patient tolerated well. MDM: 18:24 Patient medically screened. pm1 19:13 Data reviewed: vital signs. Data interpreted: Pulse oximetry: on room air is 99 %. pm1 Interpretation: normal. Counseling: I had a detailed discussion with the patient and/or guardian regarding: the historical points, exam findings, and any diagnostic results supporting the discharge/admit diagnosis, the need for outpatient follow up, suture removal in 10-14 days, to return to the emergency department if symptoms worsen or persist or if there are any questions or concerns that arise at home. 01/02 18:25 Order name: Prolene, Sutures; Complete Time: 19:05 pm1 01/02 18:25 Order name: Dressing - Wound; Complete Time: 01:56 pm1 01/02 18:25 Order name: Gloves, Sterile; Complete Time: 19:05 pm1 01/02 18:25 Order name: Setup Suture Tray; Complete Time: 19:06 pm1 Administered Medications: 19:20 Drug: Tetanus-Diphtheria Toxoid Adult 0.5 ml {Interactive Marketing Strategist: [employer]. Exp: fu 04/03/2022. Lot #: [id number]. } Route: IM; Site: left deltoid; 19:23 Drug: Lidocaine (1 %) 5 ml {Note: administered by CANDY CUTTER [employer].} Volume: 5 ml; Route: fu Infiltration; Disposition: 01/02/21 19:16 Discharged to Home. Impression: Laceration without foreign body of right wrist. - Condition is Stable. - Discharge Instructions: Laceration Care, Adult. - Prescriptions for Keflex 500 mg Oral Capsule - take 1 capsule by ORAL route every 12 hours for 10 days; 20 capsule. - Medication Reconciliation Form, Thank You Letter, Antibiotic Education, Prescription Opioid Use form. - Follow up: Emergency Department; When: As needed; Reason: Worsening of condition. Follow up: Private Physician; When: 10 - 14 days; Reason: Recheck today's complaints, Continuance of care, Staple/Suture removal, Re-evaluation by your physician. - Problem is new. - Symptoms have improved. Addendum: 01/03/2021 19:50 Co-signature as Attending Physician, Nain Loaiza MD I agree with the assessment and c celaya plan of care. Signatures: Nain Loaiza MD MD cha Marinas, Patrick, NP [employer] pm1 Humble Wasserman RN RN fu Acob, Cheryl, RN RN [facility] Corrections: (The following items were deleted from the chart) 01/02 19:33 19:16 01/02/2021 19:16 Discharged to Home. Impression: Laceration without foreign body fu of right wrist. Condition is Stable. Forms are Medication Reconciliation Form, Thank You Letter, Antibiotic Education, Prescription Opioid Use. Follow up: Emergency Department; When: As needed; Reason: Worsening of condition. Follow up: Private Physician; When: 10 - 14 days; Reason: Recheck today's complaints, Continuance of care, Staple/Suture removal, Re-evaluation by your physician. Problem is new. Symptoms have improved. pm1
--- NOTE | 2021-01-02 19:17 | ER ---
Nurse's Notes 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 ca1 Coronavirus screen: Client denies travel out of the [place] in the last 14 days. At this time, the client does not indicate any symptoms associated with coronavirus-19. Ebola Screen: Patient negative for fever greater than or equal to 101.5 degrees Fahrenheit, and additional compatible Ebola Virus Disease symptoms Patient denies exposure to infectious person. Patient denies travel to an Ebola-affected area in the 21 days before illness onset. No symptoms or risks identified at this time. Complicating Factors: There are no complicating factors for this patient. Initial Sepsis Screen: Does the patient meet any 2 criteria? No. Patient's initial sepsis screen is negative. Does the patient have a suspected source of infection? No. Patient's initial sepsis screen is negative. Risk Assessment: Do you want to hurt yourself or someone else? Patient reports no desire to harm self or others. Onset of symptoms was January 02, 2021. 18:08 Method Of Arrival: Ambulatory ca1 18:08 Acuity: RICHARD 4 ca1 Triage Assessment: 19:00 General: Appears in no apparent distress. Behavior is calm, cooperative, appropriate fu for age. Injury Description: Laceration sustained to right wrist. Historical: - Allergies: 18:11 No Known Allergies; ca1 - Home Meds: 18:11 albuterol sulfate 90 mcg/actuation Inhl HFAA 2 puffs every 4 hours [Active]; ca1 - PMHx: 18:11 allergies; Anxiety; Asthma; ca1 - PSHx: 18:11 None; ca1 - Immunization history:: Last tetanus immunization: unknown, Flu vaccine is up to date. - Social history:: Smoking status: Patient denies any tobacco usage or history of. Screenin:00 Abuse screen: Denies threats or abuse. Nutritional screening: No deficits noted. fu Tuberculosis screening: No symptoms or risk factors identified. Fall Risk None identified. Assessment: 19:00 General: Appears in no apparent distress. Behavior is calm, cooperative, appropriate fu for age, Denies fever, feeling ill, fatigue, chills. Pain: Complains of pain in right arm and right wrist Pain does not radiate. Pain Quality of pain is described as throbbing. Neuro: Level of Consciousness is awake, alert, obeys commands, Oriented to person, place, time, situation, Nursing Professor are equal bilaterally Moves all extremities. Gait is steady, Speech is normal, Facial symmetry appears normal. Cardiovascular: Denies chest pain. Respiratory: Respiratory effort is even, unlabored, Respiratory pattern is regular. GI: No signs and/or symptoms were reported involving the gastrointestinal system. : No signs and/or symptoms were reported regarding the genitourinary system. Derm: Wound noted right wrist. Musculoskeletal: No signs and/or symptoms reported regarding the musculoskeletal system. Injury Description: Laceration is sutured by CLINICAL NURSE. Vital Signs: 18:08 BP 138 / 84; Pulse 66; Resp 18 S; Temp 97.1(TE); Pulse Ox 99% on R/A; Weight 63.5 kg ca1 (R); Height 5 ft. 5 in. (165.10 cm) (R); Pain /; 18:08 Body Mass Index 23.30 (63.50 kg, 165.10 cm) ca1 ED Course: 17:24 Patient arrived in ED. am2 18:10 Triage completed. ca1 18:11 Arm band placed on right wrist. ca1 18:19 Kai Heredia NP is PHCP. pm1 18:19 Nain Loaiza MD is Attending Physician. pm1 18:25 Rachell Finn RN is Primary Nurse. iw 19:00 Patient has correct armband on for positive identification. Bed in low position. Call fu light in reach. Side rails up X 1. 19:05 Assist provider with laceration repair on right wrist that was 2.5 cm. or less using fu sutures. Set up tray. Performed by Kai Heredia NP Patient tolerated well. 19:30 Patient did not have IV access during this emergency room visit. fu Administered Medications: 19:20 Drug: Tetanus-Diphtheria Toxoid Adult 0.5 ml {Dope Edger: [employer]. Exp: fu 04/03/2022. Lot #: [id number]. } Route: IM; Site: left deltoid; 19:23 Drug: Lidocaine (1 %) 5 ml {Note: administered by CLINICAL NURSE.} Volume: 5 ml; Route: fu Infiltration; Outcome: 19:16 Discharge ordered by . pm1 19:20 Discharged to home ambulatory. fu 19:20 Condition: stable 19:20 Discharge instructions given to patient, Instructed on discharge instructions, follow up and referral plans. Demonstrated understanding of instructions, wound care. 19:33 Patient left the ED. fu Signatures: Rachell iFnn RN RN iw Marinas, Patrick, NP CLINICAL NURSE pm1 Emely Loo am2 Humble Wasserman RN RN fu Yolanda Cabrera RN RN ca1
[2021-01-02] MEDS ORDERED: TETANUS & DIPHTHERIA TOX,ADULT 0.5 ML VIAL ONE (19:21)
[2021-01-02 21:14] VITALS: BP 138/84; TEMP 97.1; O2SAT 99
== END 2021-01-02 19:33 | disposition home or self-care (01) ==
LOC: ER 17:23
PROC: 0JQG0ZZ Repair Right Lower Arm Subcutaneous Tissue and Fascia, Open Approach (ICD-10-PCS; principal; 2021-01-02)
DX: S61.511A Laceration without foreign body of right wrist, initial encounter (principal); W26.8XXA Contact with other sharp object(s), not elsewhere classified, initial encounter; Y93.89 Activity, other specified; Y92.009 Unspecified place in unspecified non-institutional (private) residence as the place of occurrence of the external cause; Z23 Encounter for immunization; J45.909 Unspecified asthma, uncomplicated
CPT/HCPCS: 90471; 90714; 99283

== ENCOUNTER 2021-01-16 15:33 | Emergency (ER) | payer SELFPAY ==
--- NOTE | 2021-01-16 15:49 | EDPHYS ---
Physician Documentation [facility] Name: Donell Rodriguez Age: 30 yrs Sex: Male : 1990 Arrival Date: 01/16/2021 Time: 15:33 Bed Waiting Private MD: ED Physician Nuria Nichols HPI: 01/16 15:50 This 30 yrs old Male presents to ER via Ambulatory with complaints of Suture kb Removal. 15:50 The patient has sutures on the right wrist. Previous treatment: The patient was kb initially treated on January 02, 2021, the care was rendered at [facility]. Sutures/bandar progress: The patient has no c/o's. The wound is well-healing with no redness, swelling, discharge, or dehiscence reported. The patient has not experienced similar symptoms in the past. The patient has not recently seen a physician. Historical: - Allergies: 15:40 No Known Allergies; ca1 - Home Meds: 15:40 albuterol sulfate 90 mcg/actuation Inhl HFAA 2 puffs every 4 hours [Active]; ca1 - PMHx: 15:40 allergies; Anxiety; Asthma; ca1 - PSHx: 15:40 None; ca1 - Immunization history:: Flu vaccine is not up to date. - Social history:: Smoking status: Patient denies any tobacco usage or history of. ROS: 15:49 Constitutional: Negative for fever, chills, and weight loss, MS/Extremity: Negative for kb injury and deformity, Neuro: Negative for headache, weakness, numbness, tingling, and seizure. 15:49 Skin: Positive for laceration(s), of the right wrist. Exam: 15:49 Constitutional: This is a well developed, well nourished patient who is awake, alert, kb and in no acute distress. Head/Face: Normocephalic, atraumatic. Respiratory: Respirations even and unlabored. No increased work of breathing, no retractions or nasal flaring. MS/ Extremity: Pulses equal, no cyanosis. Neurovascular intact. Full, normal range of motion. Neuro: Awake and alert, GCS 15, oriented to person, place, time, and situation. Moves all extremities. Normal gait. 15:49 Skin: Wound recheck: Suture laceration closure: the wound is healing well, the edges are well approximated, no evidence of dehiscence, no drainage, no erythema, no swelling. Vital Signs: 15:40 BP 131 / 81; Pulse 78; Resp 16 S; Temp 97.8(TE); Pulse Ox 98% on R/A; Weight 63.5 kg ca1 (R); Height 5 ft. 5 in. (165.10 cm) (R); Pain 0/10; 15:40 Body Mass Index 23.30 (63.50 kg, 165.10 cm) ca1 Procedures: 15:48 Suture/Staple removal: Removed 5 sutures, from right wrist, site appears well healed, kb dressed with steri-strips. Patient tolerated well. MDM: 15:40 Patient medically screened. kb 15:48 Data reviewed: vital signs, nurses notes. Data interpreted: Pulse oximetry: on room air kb is 98 %. Interpretation: normal. Counseling: I had a detailed discussion with the patient and/or guardian regarding: the historical points, exam findings, and any diagnostic results supporting the discharge/admit diagnosis, the need for outpatient follow up, a family practitioner, to return to the emergency department if symptoms worsen or persist or if there are any questions or concerns that arise at home. Administered Medications: No medications were administered Disposition: 01/16/21 15:48 Discharged to Home. Impression: Encounter for removal of sutures. - Condition is Stable. - Discharge Instructions: Suture Removal, Care After. - Medication Reconciliation Form, Thank You Letter, Antibiotic Education, Prescription Opioid Use form. - Follow up: Emergency Department; When: As needed; Reason: Worsening of condition. Follow up: Private Physician; When: 2 - 3 days; Reason: Recheck today's complaints, Continuance of care, Re-evaluation by your physician. Addendum: 01/20/2021 19:32 Co-signature as Attending Physician, Nuria Nichols MD. m a2 Signatures: Kassi Rodriguez, VAISHALI-Nuria Mooney MD MD md2 Yolanda Cabrera RN RN ca1 Corrections: (The following items were deleted from the chart) 01/16 15:52 15:48 01/16/2021 15:48 Discharged to Home. Impression: Encounter for removal of ca1 sutures. Condition is Stable. Forms are Medication Reconciliation Form, Thank You Letter, Antibiotic Education, Prescription Opioid Use. Follow up: Emergency Department; When: As needed; Reason: Worsening of condition. Follow up: Private Physician; When: 2 - 3 days; Reason: Recheck today's complaints, Continuance of care, Re-evaluation by your physician. kb
--- NOTE | 2021-01-16 15:49 | ER ---
Nurse's Notes [facility] Name: Donell Rodriguez Age: 30 yrs Sex: Male : 1990 Arrival Date: 01/16/2021 Time: 15:33 Bed Waiting Private MD: Diagnosis: Encounter for removal of sutures Presentation: 01/16 15:37 Chief complaint: Patient states: Lac repair done 2 weeks [employer], 01/03/2021. Suture on R ca1 wrist, dry and intact. Coronavirus screen: Client denies travel out of the [place] in the last 14 days. At this time, the client does not indicate any symptoms associated with coronavirus-19. Ebola Screen: Patient negative for fever greater than or equal to 101.5 degrees Fahrenheit, and additional compatible Ebola Virus Disease symptoms Patient denies exposure to infectious person. Patient denies travel to an Ebola-affected area in the 21 days before illness onset. No symptoms or risks identified at this time. Initial Sepsis Screen: Does the patient meet any 2 criteria? No. Patient's initial sepsis screen is negative. Does the patient have a suspected source of infection? No. Patient's initial sepsis screen is negative. Risk Assessment: Do you want to hurt yourself or someone else? Patient reports no desire to harm self or others. Onset of symptoms was January 16, 2021. 15:37 Method Of Arrival: Ambulatory ca1 15:37 Acuity: RICHARD 5 ca1 Historical: - Allergies: 15:40 No Known Allergies; ca1 - Home Meds: 15:40 albuterol sulfate 90 mcg/actuation Inhl HFAA 2 puffs every 4 hours [Active]; ca1 - PMHx: 15:40 allergies; Anxiety; Asthma; ca1 - PSHx: 15:40 None; ca1 - Immunization history:: Flu vaccine is not up to date. - Social history:: Smoking status: Patient denies any tobacco usage or history of. Screenin:43 Abuse screen: Denies threats or abuse. Denies injuries from another. Nutritional ca1 screening: No deficits noted. Tuberculosis screening: No symptoms or risk factors identified. Fall Risk None identified. Assessment: 15:43 Reassessment: Patient appears in no apparent distress at this time. General: Appears in ca1 no apparent distress. comfortable, Behavior is calm, cooperative, appropriate for age. Pain: Denies pain. Neuro: Level of Consciousness is awake, alert, obeys commands, Oriented to person, place, time, situation. Derm: Skin is intact, is healthy with good turgor, Skin is pink, warm \T\ dry. Musculoskeletal: Circulation, motion, and sensation intact. Capillary refill < 3 seconds. Vital Signs: 15:40 BP 131 / 81; Pulse 78; Resp 16 S; Temp 97.8(TE); Pulse Ox 98% on R/A; Weight 63.5 kg ca1 (R); Height 5 ft. 5 in. (165.10 cm) (R); Pain 0/10; 15:40 Body Mass Index 23.30 (63.50 kg, 165.10 cm) ca1 ED Course: 15:33 Patient arrived in ED. am2 15:38 Triage completed. ca1 15:40 Kassi Rodriguez FNP-C [facility] kb 15:40 Nuria Nichols MD is Attending Physician. kb 15:40 Arm band placed on right wrist. ca1 15:43 Patient has correct armband on for positive identification. ca1 15:43 No provider procedures requiring assistance completed. Patient did not have IV access ca1 during this emergency room visit. Removal of Removed sutures from right wrist Suture site is well healed Patient tolerated well. 15:52 Yolanda Cabrera, RN is Primary Nurse. ca1 Administered Medications: No medications were administered Outcome: 15:47 Discharged to home ambulatory. ca1 15:47 Condition: stable 15:47 Discharge instructions given to patient, Instructed on discharge instructions, follow up and referral plans. Demonstrated understanding of instructions, follow-up care. 15:48 Discharge ordered by MD. kb 15:52 Patient left the ED. ca1 Signatures: Kassi Rodriguez FNP-C FNP-Emely Talamantes am2 Yolanda Cabrera RN RN ca1 Corrections: (The following items were deleted from the chart) 15:40 15:37 Chief complaint: Patient states: Lac repair done 2 weeks [employer], 12/26/2020. Suture ca1 on R wrist, dry and intact ca1 15:48 15:40 BP 131 / 81; Pulse 78bpm; Resp 6bpm; Pulse Ox 98% RA; Temp 97.8F Temporal; 63.5 ca1 kg Reported; Height 5 ft. 5 in. Reported; BMI: 23.3; Pain 0/10; ca1
[2021-01-16 16:05] VITALS: BP 131/81; TEMP 97.8; O2SAT 98
== END 2021-01-16 15:52 | disposition home or self-care (01) ==
LOC: ER 15:33
DX: Z48.02 Encounter for removal of sutures (principal)
CPT/HCPCS: 99281

== ENCOUNTER 2021-04-16 03:20 | Emergency (ER) | payer SELFPAY ==
[2021-04-16 04:40] LABS: Absolute Lymphocytes (CBC) 2.6 K/uL (0.7-4.9); Basophils % 0.5 % (0-1.3); Lymphocytes % 33.7 % (15.3-44.8); MPV 8.9 fL (7.6-11.3); Protime INR 0.97; RBC Red Blood Cell Count 4.87 M/uL (4.33-5.43)
[2021-04-16] MEDS ORDERED: predniSONE 20 MG TAB ONE (04:47)
[2021-04-16] MEDS ORDERED: IPRATROPIUM BROM 0.5MG/2.5ML ONE (04:48)
[2021-04-16] MEDS ORDERED: ALBUTEROL 2.5 MG/3 ML NEB SOL ONE (04:48)
[2021-04-16 04:52] LABS: ALT/SGPT 35 U/L (12-78); AST/SGOT 22 U/L (15-37); Albumin 3.6 g/dL (3.4-5.0); Alkaline Phosphatase 80 U/L (45-117); BUN Blood Urea Nitrogen 11 mg/dL (7-18); Bicarbonate 28 mmol/L (21-32); Bilirubin Direct < 0.1 mg/dL (0-0.2); Bilirubin Total 0.5 mg/dL (0.2-1.0); Glucose Level 91 mg/dL (74-106); Magnesium 1.9 mg/dL (1.8-2.4); NT PRO-BNP 9 pg/mL (<125); Potassium 3.2 mmol/L (3.5-5.1); Protein, Total 6.4 g/dL (6.4-8.2); Sodium Level 143 mmol/L (136-145); Troponin (Emerg Dept Use Only) < 0.02 ng/mL (0.0-0.045)
--- NOTE | 2021-04-16 05:33 | EDPHYS ---
Physician Documentation [facility] Name: Donell Rodriguez Age: 30 yrs Sex: Male : 1990 Arrival Date: 04/16/2021 Time: 03:25 Bed 5 Private MD: ED Physician Jose C Simmons HPI: 04/16 05:28 This 30 yrs old Male presents to ER via Ambulatory with complaints of Chest mh7 Tightness, Breathing Difficulty. 05:28 The patient presents to the emergency department with wheezing, Current therapy: None, mh7 that began after exposure to smoke, the patient was reported to have trouble breathing, Pre-hospital care: none. Onset: The symptoms/episode began/occurred today. Modifying factors: The symptoms are alleviated by nothing, the symptoms are aggravated by smoke. Associated signs and symptoms: Pertinent positives: chest pain, Pertinent negatives: choking, fever, headache, nausea, palpitations, rash, vomiting. Severity of symptoms: At their worst the symptoms were moderate today, in the emergency department the symptoms have improved mildly. Historical: - Allergies: 03:50 No Known Allergies; jb4 - Home Meds: 03:50 albuterol sulfate 90 mcg/actuation Inhl HFAA 2 puffs every 4 hours [Active]; jb4 - PMHx: 03:50 Anxiety; Asthma; allergies; jb4 - PSHx: 03:50 None; jb4 - Immunization history:: Adult Immunizations up to date. - Social history:: Smoking status: Patient/guardian denies using tobacco, Patient/guardian denies using alcohol, street drugs. ROS: 05:28 Constitutional: Negative for fever, chills, and weight loss, Eyes: Negative for injury, mh7 pain, redness, and discharge, ENT: Negative for injury, pain, and discharge, Neck: Negative for injury, pain, and swelling, Abdomen/GI: Negative for abdominal pain, nausea, vomiting, diarrhea, and constipation, Back: Negative for injury and pain, : Negative for injury, bleeding, discharge, and swelling, MS/Extremity: Negative for injury and deformity, Skin: Negative for injury, rash, and discoloration, Neuro: Negative for headache, weakness, numbness, tingling, and seizure, Psych: Negative for depression, anxiety, suicide ideation, homicidal ideation, and hallucinations, Allergy/Immunology: Negative for hives, rash, and allergies, Endocrine: Negative for neck swelling, polydipsia, polyuria, polyphagia, and marked weight changes, Hematologic/Lymphatic: Negative for swollen nodes, abnormal bleeding, and unusual bruising. Exam: 05:28 Constitutional: This is a well developed, well nourished patient who is awake, alert, mh7 and in no acute distress. Head/Face: Normocephalic, atraumatic. Eyes: Pupils equal round and reactive to light, extra-ocular motions intact. Lids and lashes normal. Conjunctiva and sclera are non-icteric and not injected. Cornea within normal limits. Periorbital areas with no swelling, redness, or edema. Neck: Trachea midline, no thyromegaly or masses palpated, and no cervical lymphadenopathy. Supple, full range of motion without nuchal rigidity, or vertebral point tenderness. No Meningismus. Chest/axilla: Normal chest wall appearance and motion. Nontender with no deformity. No lesions are appreciated. Cardiovascular: Regular rate and rhythm with a normal S1 and S2. No gallops, murmurs, or rubs. Normal PMI, no JVD. No pulse deficits. 05:28 Abdomen/GI: Soft, non-tender, with normal bowel sounds. No distension or tympany. No guarding or rebound. No evidence of tenderness throughout. Back: No spinal tenderness. No costovertebral tenderness. Full range of motion. Skin: Warm, dry with normal turgor. Normal color with no rashes, no lesions, and no evidence of cellulitis. MS/ Extremity: Pulses equal, no cyanosis. Neurovascular intact. Full, normal range of motion. Neuro: Awake and alert, GCS 15, oriented to person, place, time, and situation. Cranial nerves II-XII grossly intact. Motor strength 5/5 in all extremities. Sensory grossly intact. Cerebellar exam normal. Normal gait. Psych: Awake, alert, with orientation to person, place and time. Behavior, mood, and affect are within normal limits. 05:28 Respiratory: the patient does not display signs of respiratory distress, Respirations: normal, Breath sounds: wheezing: expiratory that is mild, is scattered, Respiratory rate: 16 Vital Signs: 03:47 BP 137 / 94; Pulse 88; Resp 15; Temp 97.7(TE); Pulse Ox 100% on R/A; Weight 63.5 kg jb4 (R); Height 5 ft. 5 in. (165.10 cm); Pain 3/10; 05:40 BP 125 / 89; Pulse 64; Resp 16 S; Temp 97.5(TE); Pulse Ox 100% on R/A; bb 03:47 Body Mass Index 23.30 (63.50 kg, 165.10 cm) jb4 MDM: 05:28 Differential diagnosis: acute asthma, exercise-induced asthma, reactive airway, URI. [facility] Data reviewed: vital signs, nurses notes, lab test result(s), cardiac enzymes, CBC, Flu: EKG, radiologic studies, plain films. Data interpreted: Pulse oximetry: on room air is 100 %. Interpretation: normal. Counseling: I had a detailed discussion with the patient and/or guardian regarding: the historical points, exam findings, and any diagnostic results supporting the discharge/admit diagnosis, lab results, radiology results, the need for outpatient follow up, to return to the emergency department if symptoms worsen or persist or if there are any questions or concerns that arise at home. Response to treatment: the patient's symptoms have resolved after treatment, the patient's blood pressure is in an acceptable range, mental status has returned to baseline, the patient no longer shows bradycardia, the patient is not short of breath, the patient is not tachycardic, the patient's pain is gone, the patient's temperature has normalized. 05:28 Response to treatment: the patient is now symptom free. [facility] 05:32 Patient medically screened. [facility] 04/16 04:16 Order name: Basic Metabolic Panel; Complete Time: 05:04/16 04:16 Order name: CBC with Diff; Complete Time: 05:04/16 04:16 Order name: LFT's; Complete Time: 05:04/16 04:16 Order name: Magnesium; Complete Time: 05:04/16 04:16 Order name: NT PRO-BNP; Complete Time: 05:04/16 04:16 Order name: PT-INR; Complete Time: 05:04/16 04:16 Order name: Troponin (emerg Dept Use Only); Complete Time: 05:3 04/16 04:16 Order name: XRAY Chest (1 view) tt3 04/16 04:16 Order name: EKG; Complete Time: 04:17 tt3 04/16 04:16 Order name: Cardiac monitoring; Complete Time: 04:17 tt3 04/16 04:16 Order name: EKG - Nurse/Tech; Complete Time: 04:17 tt3 04/16 04:16 Order name: IV Saline Lock; Complete Time: 04:17 tt3 04/16 04:16 Order name: Labs collected and sent; Complete Time: 04:16 tt3 04/16 04:16 Order name: O2 Per Protocol; Complete Time: 04:46 tt3 04/16 04:16 Order name: O2 Sat Monitoring; Complete Time: 04:45 tt3 Administered Medications: 04:35 Drug: Albuterol 2.5 mg Route: Inhalation; ak2 04:35 Drug: AtroVENT (ipratropium) Aerosol 0.5 mg Route: Inhalation; ak2 04:35 Drug: predniSONE 60 mg Route: PO; ak2 Disposition: 04/16/21 05:32 Discharged to Home. Impression: Acute Asthma Exacerbation. - Condition is Stable. - Discharge Instructions: Asthma, Adult, [id number]. - Prescriptions for Prednisone 20 mg Oral Tablet - take 2 tablet by ORAL route once daily for 5 days; 10 tablet. Albuterol Sulfate 90 mcg/actuation - inhale 1-2 puff by INHALATION route every 4-6 hours; 1 Inhaler. - Work release form, Medication Reconciliation Form, Thank You Letter, Antibiotic Education, Prescription Opioid Use form. - Follow up: Private Physician; When: 1 - 2 days; Reason: Worsening of condition, Recheck today's complaints, Continuance of care, Re-evaluation by your physician. - Problem is an acute exacerbation. - Symptoms are resolved. Signatures: Dispatcher [employer] Claudia Malhotra RN RN bb Bryson, James, RN RN jb4 Jose C Simmons MD MD 7 [address] Saavedra 3 Richie Molina2 Corrections: (The following items were deleted from the chart) 05:41 05:32 04/16/2021 05:32 Discharged to Home. Impression: Acute Asthma Exacerbation. bb Condition is Stable. Forms are Medication Reconciliation Form, Thank You Letter, Antibiotic Education, Prescription Opioid Use. Follow up: Private Physician; When: 1 - 2 days; Reason: Worsening of condition, Recheck today's complaints, Continuance of care, Re-evaluation by your physician. Problem is an acute exacerbation. Symptoms are resolved. mh7
--- NOTE | 2021-04-16 05:33 | ER ---
Nurse's Notes [facility] Name: Donell Rodriguez Age: 30 yrs Sex: Male : 1990 Arrival Date: 04/16/2021 Time: 03:25 Bed 5 Private MD: Diagnosis: Acute Asthma Exacerbation Presentation: 04/16 03:47 Chief complaint: Patient states: I started having shortness of breath and chest pain a jb4 few hours ago. I had been drinking hot teas and taking hot showers and it seemed to help. It isn't helping anymore and the shortness of breath feels like its getting worse. Coronavirus screen: Client presents with at least one sign or symptom that may indicate coronavirus-19. Standard/surgical mask placed on the client. Provider contacted for isolation considerations. Ebola Screen: No symptoms or risks identified at this time. Initial Sepsis Screen: Does the patient meet any 2 criteria? No. Patient's initial sepsis screen is negative. Does the patient have a suspected source of infection? No. Patient's initial sepsis screen is negative. Risk Assessment: Do you want to hurt yourself or someone else? Patient reports no desire to harm self or others. Onset of symptoms was April 16, 2021. Transition of care: patient was not received from another setting of care. 03:47 Method Of Arrival: Ambulatory jb4 03:47 Acuity: RICHARD 3 jb4 Triage Assessment: 04:38 General: Appears in no apparent distress. Behavior is calm, cooperative. Pain: Denies ak2 pain. Cardiovascular: No deficits noted. Historical: - Allergies: 03:50 No Known Allergies; jb4 - Home Meds: 03:50 albuterol sulfate 90 mcg/actuation Inhl HFAA 2 puffs every 4 hours [Active]; jb4 - PMHx: 03:50 Anxiety; Asthma; allergies; jb4 - PSHx: 03:50 None; jb4 - Immunization history:: Adult Immunizations up to date. - Social history:: Smoking status: Patient/guardian denies using tobacco, Patient/guardian denies using alcohol, street drugs. Screenin:37 Abuse screen: Denies threats or abuse. Denies injuries from another. Nutritional ak2 screening: No deficits noted. Tuberculosis screening: No symptoms or risk factors identified. Fall Risk None identified. Assessment: 04:38 Pain: Pain does not radiate. Pain began gradually. ak2 05:40 Reassessment: Patient is alert, oriented x 3, equal unlabored respirations, skin bb warm/dry/pink. pt verbalized understanding of and agrees to plan of care discharge instructions given pt ambulated with steady gait to exit Patient states feeling better. Patient states symptoms have improved. Vital Signs: 03:47 BP 137 / 94; Pulse 88; Resp 15; Temp 97.7(TE); Pulse Ox 100% on R/A; Weight 63.5 kg jb4 (R); Height 5 ft. 5 in. (165.10 cm); Pain 3/10; 05:40 BP 125 / 89; Pulse 64; Resp 16 S; Temp 97.5(TE); Pulse Ox 100% on R/A; bb 03:47 Body Mass Index 23.30 (63.50 kg, 165.10 cm) jb4 ED Course: 03:25 Patient arrived in ED. am4 03:42 Laith Zelaya RN is Primary Nurse. jb4 03:47 Jose C Simmons MD is Attending Physician. 7 03:49 Triage completed. jb4 03:50 Arm band placed on right wrist. jb4 03:52 Initial lab(s) drawn, by me, sent to lab. EKG done, by ED staff, reviewed by Jose C Simmons MD. Inserted saline lock: 20 gauge in right antecubital area, using aseptic technique. Blood collected. 04:34 XRAY Chest (1 view) In Process Unspecified. EDMS 04:37 Patient has correct armband on for positive identification. 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 Pulse ak2 ox on. NIBP on. 04:37 No provider procedures requiring assistance completed. Patient maintains SpO2 ak2 saturation greater than 95% on room air. 05:40 IV discontinued, intact, bleeding controlled, No redness/swelling at site. Pressure bb dressing applied. Administered Medications: 04:35 Drug: Albuterol 2.5 mg Route: Inhalation; ak2 04:35 Drug: AtroVENT (ipratropium) Aerosol 0.5 mg Route: Inhalation; ak2 04:35 Drug: predniSONE 60 mg Route: PO; ak2 Outcome: 05:32 [address] ordered by . [facility] 05:41 Discharged to home ambulatory. bb 05:41 Condition: stable 05:41 Discharge instructions given to patient, Instructed on discharge instructions, follow up and referral plans. medication usage, Demonstrated understanding of instructions, follow-up care, medications, Prescriptions given X 2. 05:41 Patient left the ED. bb Signatures: Dispatcher [employer] EDClaudia Greenfield RN RN Laith Muller RN RN jb4 Jose C Simmons MD MD 7 [address] Saavedra3 Adrienne hSarma am4 Richie Molina [facility]
[2021-04-16 05:50] VITALS: O2SAT 100
[2021-04-16 05:51] VITALS: BP 125/89; TEMP 97.5
--- NOTE | 2021-04-16 07:46 | RAD REPORT ---
EXAM DESCRIPTION: Vikas Single View04/16/2021 4:35 am CLINICAL HISTORY: Chest pain COMPARISON: 2019 FINDINGS: The lungs appear clear of acute infiltrate. The heart is normal size IMPRESSION: No acute abnormalities displayed
--- NOTE | 2021-04-18 08:27 | EKG ---
Test Date: 2021-04-16 Test Time: 03:42:13 Editor Department: TLT MEASUREMENT RESULTS: Intervals: Rate: 81 NC: 172 QRSD: 96 QT: 348 QTc: 404 [place]: P: 79 NC: 172 QRS: 84 T: 69 INTERPRETIVE STATEMENTS: Normal sinus rhythm with sinus arrhythmia Normal ECG Compared to ECG 12/19/2016 03:38:52 No significant changes Electronically Signed On 04-18-21 08:24:17 CDT by Vargas Lima
== END 2021-04-16 05:41 | disposition home or self-care (01) ==
LOC: ER 03:20
DX: J45.901 Unspecified asthma with (acute) exacerbation (principal)
CPT/HCPCS: 36415; 71045; 80048; 80076; 83735; 83880; 84484; 85025; 85610; 93005; 99285; J7512

== ENCOUNTER 2021-07-13 07:44 | Emergency (ER) | payer SELFPAY ==
[2021-07-13] MEDS ORDERED: IPRATROPIUM BROM 0.5MG/2.5ML ONE (08:38)
[2021-07-13] MEDS ORDERED: LEVALBUTEROL 1.25 MG/3 ML NEB ONE (08:38)
[2021-07-13] MEDS ORDERED: METHYLPREDNISOLONE 125 MG INJ ONE (08:39)
--- NOTE | 2021-07-13 09:34 | EDPHYS ---
Physician Documentation [facility] Name: Donell Rodriguez Age: 31 yrs Sex: Male : 1990 Arrival Date: 07/13/2021 Time: 07:47 Bed 23 Private MD: ED Physician Souleymane Gonzalez HPI: 07/13 08:19 This 31 yrs old Male presents to ER via Ambulatory with complaints of Asthma rn Exacerbation. 08:19 The patient presents to the emergency department with wheezing, Current therapy: rn albuterol inhaler, that began after exposure to dust, the patient was reported to have audible wheezing, Pre-hospital care: none. Onset: The symptoms/episode began/occurred yesterday. Modifying factors: The symptoms are alleviated by nothing, the symptoms are aggravated by dust. Associated signs and symptoms: Pertinent negatives: chest pain, fever, palpitations, vomiting. Severity of symptoms: At their worst the symptoms were mild in the emergency department the symptoms are unchanged. The patient has experienced similar episodes in the past. The patient has not recently seen a physician. Patient reports doing something in the the ceiling, exposed to dust yesterday, has been dealing with seasonal allergies, presents with asthma exacerbation. Denies any fever or chills. No change in taste or smell. No cough. Feels like asthma exacerbation to him. Does not feel ill. Does not have albuterol inhaler or nebulizer medication at home so did not take anything.. Historical: - Allergies: 08:01 No Known Allergies; jl7 - Home Meds: 08:01 albuterol sulfate 90 mcg/actuation Inhl HFAA 2 puffs every 4 hours [Active]; jl7 - PMHx: 08:01 allergies; Anxiety; Asthma; jl7 - PSHx: 08:01 None; jl7 - Immunization history:: Adult Immunizations up to date, Client reports receiving the 2nd dose of the Covid vaccine. - Social history:: Smoking status: Patient denies any tobacco usage or history of. - Family history:: not pertinent. - Hospitalizations: : No recent hospitalization is reported. ROS: 08:19 Constitutional: Negative for fever, chills, and weight loss, Eyes: Negative for injury, rn pain, redness, and discharge, Neck: Negative for injury, pain, and swelling, Cardiovascular: Negative for chest pain, palpitations, and edema, Respiratory: Positive for shortness of breath and wheezing Abdomen/GI: Negative for abdominal pain, nausea, vomiting, diarrhea, and constipation, Back: Negative for injury and pain, MS/Extremity: Negative for injury and deformity, Skin: Negative for injury, rash, and discoloration, Neuro: Negative for headache, weakness, numbness, tingling, and seizure. 08:19 All other systems are negative. Exam: 08:19 Constitutional: This is a well developed, well nourished patient who is awake, alert, rn and in no acute distress. Ambulatory to room without distress. Declines wheelchair. Head/Face: Normocephalic, atraumatic. Eyes: Pupils equal round and reactive to light, extra-ocular motions intact. Lids and lashes normal. Conjunctiva and sclera are non-icteric and not injected. Cornea within normal limits. Periorbital areas with no swelling, redness, or edema. ENT: No stridor, moist mucous membranes Cardiovascular: Regular rate and rhythm. No pulse deficits. Respiratory: Diffuse wheezing noted, no retractions. Mild tachypnea Abdomen/GI: Soft, nontender Skin: Warm, dry MS/ Extremity: Pulses equal, no cyanosis. Neuro: Awake and alert, GCS 15 Vital Signs: 07:59 BP 132 / 101; Pulse 93; Resp 19; Temp 97.7; Pulse Ox 100% on R/A; Weight 61.23 kg; jl7 Height 5 ft. 5 in. (165.10 cm); Pain 0/10; 08:35 BP 162 / 74; Pulse 72; Resp 20; Temp 97.7; aj2 08:49 BP 121 / 81; Pulse 74; Resp 20; Temp 97.7; Pulse Ox 99% on R/A; aj2 09:44 BP 134 / 95; Pulse 76; Resp 18; Temp 97.6; Pulse Ox 100% ; aj2 07:59 Body Mass Index 22.46 (61.23 kg, 165.10 cm) 7 MDM: 07:58 Patient medically screened. rn 08:32 Data interpreted: traffic monitor specialist: rate is 93 beats/min, rhythm is normal sinus rhythm, rn regular, with no ectopy, Interpretation: normal rate, normal rhythm. 08:33 Differential diagnosis: acute asthma, reactive airway. Antibiotic administration: Not rn indicated. Data reviewed: vital signs, nurses notes. Data interpreted: Pulse oximetry: on room air is 100 %. Interpretation: normal. 09:33 Counseling: I had a detailed discussion with the patient and/or guardian regarding: the rn historical points, exam findings, and any diagnostic results supporting the discharge/admit diagnosis, the need for outpatient follow up, to return to the emergency department if symptoms worsen or persist or if there are any questions or concerns that arise at home. Response to treatment: the patient's symptoms have markedly improved after treatment, and as a result, I will discharge patient. Special discussion: I discussed with the patient/guardian in detail that at this point there is no indication for admission to the hospital. It is understood, however, that if the symptoms persist or worsen the patient needs to return immediately for re-evaluation. Based on the history and exam findings, there is no indication for further emergent testing or inpatient evaluation. I discussed with the patient/guardian the need to see the primary care provider for further evaluation of the symptoms. I discussed with the patient/guardian the need to see the slabber for further evaluation of the symptoms. 09:33 ED course: Patient feels much better, requesting to go home. No oxygen requirement.. rn 07/13 08:04 Order name: IV Start; Complete Time: 08:22 rn 07/13 08:33 Order name: O2 Sat Monitoring rn 07/13 08:33 Order name: O2 Per Protocol rn 07/13 08:33 Order name: Cardiac monitoring rn Administered Medications: 08:22 Drug: SOLU-Medrol (methylPrednisoLONE) 125 mg Route: IVP; Site: right antecubital; aj2 08:22 Drug: Xopenex (levalbuterol) (3) 1.25 mg Route: Inhalation; aj2 08:22 Drug: AtroVENT (ipratropium) Aerosol 0.5 mg Route: Inhalation; aj2 Disposition Summary: 07/13/21 09:34 Discharge Ordered Location: Home rn Problem: an acute exacerbation rn Symptoms: have improved rn Condition: Stable rn Diagnosis - Unspecified asthma with (acute) exacerbation rn Followup: rn - With: Private Physician - When: As needed - Reason: Recheck today's complaints, Re-evaluation by your physician Discharge Instructions: - Discharge Summary Sheet rn - Asthma, Adult rn Forms: - Medication Reconciliation Form rn - Thank You Letter rn - Antibiotic furnace unloader - Prescription Opioid Use rn Prescriptions: - albuterol sulfate 90 mcg/actuation Inhalation HFA aerosol inhaler - inhale 2 puff by INHALATION route every 4-6 hours; 1 Pump; Refills: 0, Product rn Selection Permitted - Prednisone 20 mg Oral Tablet - take 3 tablets by ORAL route once daily for 5 days; 15 tablet; Refills: 0, rn Product Selection Permitted - Albuterol Sulfate 2.5 mg /3 mL (0.083 %) Inhalation Solution for Nebulization - inhale 1 unit by NEBULIZATION route every 8 hours As needed; 1 box; Refills: 0, rn Product Selection Permitted Signatures: Souleymane Gonzalez MD MD rn Leal, Jahala, RN RN jl7 Brittany Machado
--- NOTE | 2021-07-13 09:34 | ER ---
Nurse's Notes [facility] Name: Donell Rodriguez Age: 31 yrs Sex: Male : 1990 Arrival Date: 07/13/2021 Time: 07:47 Bed 23 Private MD: Diagnosis: Unspecified asthma with (acute) exacerbation Presentation: 07/13 07:59 Chief complaint: Patient states: Shortness of breath x 5 hours, audible wheezes noted jl7 in triage. Coronavirus screen: Vaccine status: Patient reports receiving the 2nd dose of the covid vaccine. Date May 2021 Pfizer At this time, the client does not indicate any symptoms associated with coronavirus-19. Ebola Screen: No symptoms or risks identified at this time. Initial Sepsis Screen: Does the patient meet any 2 criteria? No. Patient's initial sepsis screen is negative. Does the patient have a suspected source of infection? No. Patient's initial sepsis screen is negative. Risk Assessment: Do you want to hurt yourself or someone else? Patient reports no desire to harm self or others. Onset of symptoms was July 13, 2021. 07:59 Method Of Arrival: Ambulatory jl7 07:59 Acuity: RICHARD 3 jl7 Triage Assessment: 08:01 General: Appears in no apparent distress. uncomfortable, Behavior is calm, cooperative, jl7 appropriate for age. Pain: Denies pain. Historical: - Allergies: 08:01 No Known Allergies; jl7 - Home Meds: 08:01 albuterol sulfate 90 mcg/actuation Inhl HFAA 2 puffs every 4 hours [Active]; jl7 - PMHx: 08:01 allergies; Anxiety; Asthma; jl7 - PSHx: 08:01 None; jl7 - Immunization history:: Adult Immunizations up to date, Client reports receiving the 2nd dose of the Covid vaccine. - Social history:: Smoking status: Patient denies any tobacco usage or history of. - Family history:: not pertinent. - Hospitalizations: : No recent hospitalization is reported. Screenin:34 Abuse screen: Denies threats or abuse. Denies injuries from another. Nutritional aj2 screening: No deficits noted. Tuberculosis screening: No symptoms or risk factors identified. Fall Risk None identified. Assessment: 08:35 Reassessment: Patient appears in no apparent distress at this time. Patient is alert, aj2 oriented x 3, equal unlabored respirations, skin warm/dry/pink. Patient states feeling better. Patient states symptoms have improved. General: Appears in no apparent distress. comfortable, slender, well groomed, well developed. Pain: Denies pain. Respiratory: Airway is patent. 08:49 Reassessment: Patient appears in no apparent distress at this time. Patient is alert, aj2 oriented x 3, equal unlabored respirations, skin warm/dry/pink. Patient denies pain at this time. Patient states feeling better. Patient states symptoms have improved. A\T\Ox4, respirations even and unlabored, skin warm and dry to touch. Patient denies CE. Sitting in bed quietly texting on his phone.. Vital Signs: 07:59 BP 132 / 101; Pulse 93; Resp 19; Temp 97.7; Pulse Ox 100% on R/A; Weight 61.23 kg; jl7 Height 5 ft. 5 in. (165.10 cm); Pain 0/10; 08:35 BP 162 / 74; Pulse 72; Resp 20; Temp 97.7; aj2 08:49 BP 121 / 81; Pulse 74; Resp 20; Temp 97.7; Pulse Ox 99% on R/A; aj2 09:44 BP 134 / 95; Pulse 76; Resp 18; Temp 97.6; Pulse Ox 100% ; aj2 07:59 Body Mass Index 22.46 (61.23 kg, 165.10 cm) jl7 ED Course: 07:47 Patient arrived in ED. mr 07:58 Souleymane Gonzalez MD is Attending Physician. rn 08:01 Triage completed. jl7 08:01 Arm band placed on right wrist. jl7 08:11 Brittany Machado is Primary Nurse. aj2 08:34 No apparent distress. Resting quietly. aj2 08:34 Patient has correct armband on for positive identification. aj2 08:34 No provider procedures requiring assistance completed. Inserted saline lock: 20 gauge. aj2 08:35 No apparent distress. aj2 08:35 Flushed Converted IV to saline lock on right. aj2 08:49 Resting quietly. aj2 08:49 IV is patent, is intact. aj2 Administered Medications: 08:22 Drug: SOLU-Medrol (methylPrednisoLONE) 125 mg Route: IVP; Site: right antecubital; aj2 08:22 Drug: Xopenex (levalbuterol) (3) 1.25 mg Route: Inhalation; aj2 08:22 Drug: AtroVENT (ipratropium) Aerosol 0.5 mg Route: Inhalation; aj2 Outcome: 09:34 Discharge ordered by . rn 09:46 Discharged to home ambulatory. aj2 09:46 Condition: stable 09:46 Discharge instructions given to patient, Instructed on discharge instructions, follow up and referral plans. Demonstrated understanding of instructions, follow-up care, medications, Prescriptions given X 3. 09:47 Patient left the ED. aj2 Signatures: Syeda Montelongo Roman, MD MD rn Leal, Jahala, RN RN jl7 Jenkins, Angelea aj2
[2021-07-13 10:10] VITALS: BP 134/95; TEMP 97.6; O2SAT 100
== END 2021-07-13 09:47 | disposition home or self-care (01) ==
LOC: ER 07:44
DX: J45.901 Unspecified asthma with (acute) exacerbation (principal); F41.9 Anxiety disorder, unspecified
CPT/HCPCS: 96374; 99284; J2930